=== PATIENT | male | born 1950 | race Caucasian/White ===

== ENCOUNTER → 2016-10-08 | Outpatient (CLI) | payer MEDICARE, MEDICAID ==
[~2016-10-08] MED LIST: ADVAIR 250/501 EA INH; ALBUTEROL0.09 MG/A2 IH; AMOXICILLIN500 MG PO; ASPIRIN81 M1 PO; ATENOLOL25 MG PO; ATROVENT I0.5 MG/2.1 INH; B12,B-12,B 12500 MC1 PO; CIPRO500 MG PO; COMBIVENT1 ARO IH; COREG3.125 MG PO; DOXYCYCLINE MO100 MG PO; DUONEB 3 MG/3 ML3 M1 INH; FLEXERIL10 MG PO; GOOD NEIGHBOR PH2 M1 PO; IBUPROFEN800 MG PO; LEVAQUIN750 M1 PO; LEVAQUIN750 MG PO; LEVOFLOXACIN500 MG PO; LIDODERM 5% PATC1 EA T; MIRALAX17 GM/DOSE PO; MUCINEX D 600 M1 TER PO; MUCINEX ER600 MG PO; NAPROXEN375 M1 PO; NEXIUM40 MG PO; NITROSTAT0.4 MG SL; NOVAPLUS V0.09 MG/Ac INH; OXYGEN NAS; PERCOCET 325 MG1 TA2 PO; PRAVACHOL20 MG PO; PREDNICOT10 MG PO; PREDNICOT20 MG PO; PREDNISONE10 MG PO; RESTORIL30 MG PO; SINGULAIR10 MG PO; SPIRIVA18 MCG IH; SYMBICORT1 AE1 INH; SYMBICORT1 AE1 PO; THEOPHYLLINE PO; TRAMADOL HCL50 MG PO; TRAZADONE HYDR100 MG PO; TRAZODONE100 MG PO; VALIUM5 MG PO; VIBRAMYCIN100 MG PO
== END | disposition home or self-care (01) ==
LOC: CT 09:36
DX: J44.9 Chronic obstructive pulmonary disease, unspecified (principal); R91.8 Other nonspecific abnormal finding of lung field; R06.02 Shortness of breath; Z85.828 Personal history of other malignant neoplasm of skin

== ENCOUNTER → 2016-12-17 | Outpatient (CLI) | payer MEDICARE, MEDICAID ==
--- NOTE | ~2016-12-17 | ST ---
[place], [place] EXERCISE STRESS TEST REPORT NAME: [facility]INE [facility]ATA SR [id number] UNIT #: [id number] ROOM: DOCTOR: LUI ENGEL MD BIRTHDATE: [birth year] DOS: 12/17/2016 LEXISCAN [employer]Y Regadenoson was infused intravenously over a period of 10 seconds, and 40 seconds later, technetium 99 sestamibi was injected intravenously. He became short of breath for a few minutes, but resolved. He had no chest pain. Maximum heart rate was 102 beats per minute and blood pressure was 118/70. Resting ECG demonstrated normal sinus rhythm at 81 beats per minute in a normal pattern. Following Lexiscan, no changes in the ECG were identified, and there were no dysrhythmias. CONCLUSION: 1. The patient had mild dyspnea following infusion of regadenoson. 2. No clinical or electrocardiographic evidence of ischemia. 3. Nuclear report will be provided separately. LUI ENGEL MD CM:STRESS:EXERCISE STRESS TEST REPORT [id number] LUI ENGEL MD
--- NOTE | ~2016-12-17 | PROC NOTE ---
[place], [place] PROCEDURE NOTE NAME: ERNESTINE PLATA SR UNIT #: [id number] ROOM: DOCTOR: LUI ENGEL MD BIRTHDATE: [birth year] DOS: 12/17/2016 LEXISCAN C[employer]IOLITE [employer]UDY Regadenoson was infused intravenously over a period of 10 seconds, and 40 seconds later, technetium 99 sestamibi was injected intravenously. He became short of breath for a few minutes, but resolved. He had no chest pain. Maximum heart rate was 102 beats per minute and blood pressure was 118/70. Resting ECG demonstrated normal sinus rhythm at 81 beats per minute in a normal pattern. Following Lexiscan, no changes in the ECG were identified, and there were no dysrhythmias. CONCLUSION: 1. The patient had mild dyspnea following infusion of regadenoson. 2. No clinical or electrocardiographic evidence of ischemia. 3. Nuclear report will be provided separately. LUI ENGEL MD CM:PROCNOTE:PROCEDURE NOTE [id number] LUI ENGEL MD
== END | disposition home or self-care (01) ==
LOC: CARD 12-10 01:23
DX: R07.89 Other chest pain (principal); R53.81 Other malaise

== ENCOUNTER 2017-01-21 15:25 | Inpatient (IN) | payer MEDICARE, MEDICAID ==
[~2017-01-21] VITALS: Ht 154.9 cm; Wt 98.2 kg
[2017-01-21 15:55] VITALS: BP 129/80
[2017-01-21 16:30] VITALS: BP 132/85
[2017-01-21 16:41] LABS: BASO % 0.4 % (0.0-1.0); EOS # 0.1 10*3/uL (0.0-0.4); EOS % 0.9 % (1.0-4.0); HEMATOCRIT 45.7 % (42.0-52.0); HEMOGLOBIN 14.4 g/dl (14.0-18.0); LYMPH # 1.2 10*3/uL (1.3-4.4); LYMPH % 11.9 % (27.0-41.0); MEAN CELL VOLUME 104.6 fl (80.0-94.0); MEAN CORPUSCULAR HGB CONC 31.5 g/dl (33.0-37.0); MEAN PLATELET VOLUME 9.8 fl (9.6-12.3); MONO % 9.9 % (3.0-9.0); NEUT # 7.6 10*3/uL (2.3-7.9); NEUT % 76.5 % (47.0-73.0); PLATELET COUNT AUTOMATED 170 10*3/uL (130-400); RED BLOOD COUNT 4.37 10*6/uL (4.50-5.90); RED CELL DISTRI WIDTH 13.5 % (0-14.5); WHITE BLOOD COUNT 9.9 10*3/uL (4.8-10.8)
[2017-01-21 16:49] LABS: PROTHROMBIN TIME 10.4 SECONDS (9.0-12.4)
[2017-01-21 17:00] VITALS: BP 109/69
[2017-01-21 17:00] LABS: ALBUMIN 3.3 gm/dl (3.1-4.5); ALKALINE PHOSPHATASE 107 U/L (45-117); BILIRUBIN, TOTAL 0.3 mg/dl (0.2-1.0); BUN 16 mg/dl (7-24); CARBON DIOXIDE 37 mmol/L (21-32); CHLORIDE 98 mmol/L (98-107); CKMB 1.8 ng/ml (0.5-3.6); CPK 69 U/L (39-308); EST GLOM FILT AFRICAN AMERICAN > 60 ml/min; GLUCOSE 116 mg/dL (65-99); MAGNESIUM 2.3 mg/dL (1.5-2.1); POTASSIUM 4.2 mmol/L (3.5-5.1); SGOT/AST 14 IU/L (3-35); SGPT/ALT 21 U/L (12-78); SODIUM 142 mmol/L (136-145); TOTAL PROTEIN 7.3 gm/dL (6.4-8.2)
[2017-01-21 17:02] LABS: TROPONIN I < 0.015 ng/ml (<0.045)
[2017-01-21 17:30] VITALS: BP 125/79
[2017-01-21] MEDS ORDERED: XALATAN 0.005%2.5 ML INTRAOC (17:40)
[2017-01-21 17:52] LABS: BILIRUBIN NEGATIVE (NEGATIVE); BLOOD TRACE-INTACT (NEGATIVE); CLARITY CLEAR (CLEAR); COLOR YELLOW (YELLOW); GLUCOSE NEGATIVE (NEGATIVE); KETONE NEGATIVE (NEGATIVE); LEUKO ESTERASE NEGATIVE (NEGATIVE); NITRITE NEGATIVE (NEGATIVE); PROTEIN 2+ (NEGATIVE); SPECIFIC GRAVITY 1.025 (1.005-1.030)
[2017-01-21 18:00] VITALS: BP 113/74
[2017-01-21 18:00] LABS: RBC 0-2 rbc/hpf (0-2); WBC 0-2 wbc/hpf (0-5)
[2017-01-21 18:01] LABS: URINE REFLEX COMMENT NO (NO)
[2017-01-21 18:05] VITALS: BP 138/94
[2017-01-22] VITALS: BP 125/62
[2017-01-22 04:00] LABS: HEMATOCRIT 45.7 % (42.0-52.0); HEMOGLOBIN 14.2 g/dl (14.0-18.0); MEAN CORPUSCULAR HGB 32.9 pg (27.0-31.0); MEAN CORPUSCULAR HGB CONC 31.1 g/dl (33.0-37.0); MEAN PLATELET VOLUME 9.4 fl (9.6-12.3); PLATELET COUNT AUTOMATED 171 10*3/uL (130-400); RED BLOOD COUNT 4.31 10*6/uL (4.50-5.90); RED CELL DISTRI WIDTH 13.3 % (0-14.5); WHITE BLOOD COUNT 8.8 10*3/uL (4.8-10.8)
[2017-01-22 04:18] LABS: BUN 14 mg/dl (7-24); CARBON DIOXIDE 38 mmol/L (21-32); CHLORIDE 100 mmol/L (98-107); EST GLOM FILT AFRICAN AMERICAN > 60 ml/min; GLUCOSE 181 mg/dL (65-99); SODIUM 142 mmol/L (136-145)
[2017-01-22 04:22] LABS: FREE T4 0.94 ng/dl (0.76-1.46)
[2017-01-22 04:24] LABS: LYMPHOCYTE # 0.2 10*3/uL (1.3-4.4); MONOCYTE # 0.1 10*3/uL (0.1-1.0); NEUTROPHIL # 8.5 10*3/uL (2.3-7.9); NEUTROPHILS 97 % (47-73); PLATELET SUFFICIENCY NORMAL (NORMAL); TOTAL CELLS COUNTED 100 #CELLS
[2017-01-22 04:29] LABS: POTASSIUM 5.3 mmol/L (3.5-5.1); THYROID STIM HORMONE (HS) 0.106 uIU/ml (0.358-4.75)
[2017-01-22 06:53] LABS: FOLIC ACID 9.03 ng/mL (>5.38); VITAMIN D, 25-HYDROXY 8.2 ng/mL (30-100)
[2017-01-22 08:00] VITALS: BP 122/78
[2017-01-22 12:00] VITALS: BP 106/70
[2017-01-22 16:00] VITALS: BP 124/73
[2017-01-22 20:00] VITALS: BP 134/63
[2017-01-22 23:56] VITALS: BP 132/66
[2017-01-23 06:45] LABS: BUN 17 mg/dl (7-24); CARBON DIOXIDE 40 mmol/L (21-32); CHLORIDE 101 mmol/L (98-107); EST GLOM FILT AFRICAN AMERICAN > 60 ml/min; GLUCOSE 152 mg/dL (65-99); POTASSIUM 5.1 mmol/L (3.5-5.1); SODIUM 144 mmol/L (136-145)
[2017-01-23 08:00] VITALS: BP 121/73
[2017-01-23] MEDS ORDERED: PREDNISONE10 MG PO (09:47)
[2017-01-23] MEDS ORDERED: D-1000 185 MG-11 TAB PO (09:47)
[2017-01-23] MEDS ORDERED: FLOMAX0.4 MG PO (09:47)
[2017-01-23] MEDS ORDERED: TRAZODONE100 MG PO (09:47)
[2017-01-23] MEDS ORDERED: LEVAQUIN500 M2 PO (09:47)
[2017-01-23 12:00] VITALS: BP 129/74
== END 2017-01-23 13:04 | disposition home or self-care (01) | DRG 871 ==
LOC: ED 15:25 → 4E 17:21 → EDHOLD 17:21 → 4E 17:48
PROVIDERS: Emergency Medicine; Internal Medicine Hospice and Palliative Medicine
DX: A41.9 Sepsis, unspecified organism (principal); J18.9 Pneumonia, unspecified organism; J96.21 Acute and chronic respiratory failure with hypoxia; J44.1 Chronic obstructive pulmonary disease with (acute) exacerbation; J44.0 Chronic obstructive pulmonary disease with (acute) lower respiratory infection; R65.20 Severe sepsis without septic shock; E83.41 Hypermagnesemia; R73.9 Hyperglycemia, unspecified; I25.10 Atherosclerotic heart disease of native coronary artery without angina pectoris; E78.5 Hyperlipidemia, unspecified; E66.01 Morbid (severe) obesity due to excess calories; F32.9 Major depressive disorder, single episode, unspecified; D75.89 Other specified diseases of blood and blood-forming organs; E55.9 Vitamin D deficiency, unspecified; E87.5 Hyperkalemia; N40.1 Benign prostatic hyperplasia with lower urinary tract symptoms; G47.33 Obstructive sleep apnea (adult) (pediatric); Z96.1 Presence of intraocular lens; Z99.81 Dependence on supplemental oxygen; Z85.46 Personal history of malignant neoplasm of prostate; Z85.828 Personal history of other malignant neoplasm of skin; Z98.49 Cataract extraction status, unspecified eye; Z98.61 Coronary angioplasty status; Z88.1 Allergy status to other antibiotic agents; Z80.1 Family history of malignant neoplasm of trachea, bronchus and lung; Z82.5 Family history of asthma and other chronic lower respiratory diseases; Z71.6 Tobacco abuse counseling; Z87.891 Personal history of nicotine dependence; Z79.82 Long term (current) use of aspirin; Z79.899 Other long term (current) drug therapy; Z68.37 Body mass index [BMI] 37.0-37.9, adult

== ENCOUNTER 2017-02-05 11:43 | Inpatient (IN) | payer MEDICARE, MEDICAID ==
[2017-02-05] VITALS (7 sets, daily range): BP systolic 97–147; BP diastolic 62–76
[~2017-02-05] VITALS: Ht 162.6 cm; Wt 99.1 kg
--- NOTE | ~2017-02-05 | PR ---
[place], [place] PROGRESS NOTE [id number] UN[facility] #: [id number] ROOM: 427 DOCTOR: LUI ENGEL MD BIRTHDATE: [birth year] DOS: 02/10/2017 SUBJECTIVE: He continued to be very short of breath and has oxygen on by mask. He still is coughing, very tired because of labored breathing. He has not had any chest pain other than when he coughs, no palpitations. Atrial fibrillation has been treated with diltiazem and atenolol and heart rate was around 120-130s today. He appears ____ frustrated and somewhat despondent and depressed. OBJECTIVE: GENERAL: He is alert, sitting in a chair with oxygen by mask, fairly tachypneic. VITAL SIGNS: Pulse is irregular at 120 beats per minute, blood pressure is 130/80. NECK: JVP is difficult to assess because of short neck and being obese. LUNGS: Breath sounds are severely diminished with adventitious sounds ____. EXTREMITIES: He had at least 2+ edema below the knees. IMPRESSION: 1. Chronic obstructive pulmonary disease exacerbation, somewhat better. 2. Atrial fibrillation with rapid ventricular rate, diltiazem is being added to atenolol to slow down the heart rate. 3. Chest x-ray 48 hours ago had demonstrated mild cardiomegaly and chronic obstructive pulmonary disease changes and no pulmonary edema. I think this patient has right heart failure. I recommend using IV furosemide for a few days and then switch him over to oral preparation. When he is discharged, I would like to see him in my office soon. LUI ENGEL MD CM:PNTRANS [id number] LUI ENGEL MD 02/11/17 0423 interface
--- NOTE | ~2017-02-05 | PR ---
[place], [place] PROGRESS NOTE NAME: ERNESTINE PLATA SR UNIT #: [id number] ROOM: 427 DOCTOR: RICKI SHOEMAKER MD BIRTHDATE: [birth year] DOS: 02/10/2017 SUBJECTIVE: He has been noted with some drowsiness. He had arterial blood gases done this morning shows severe hypercapnia with a decreased pH. The patient's use of the BiPAP was noted limited as the patient was not wishing to put it on as recommended. OBJECTIVE: VITAL SIGNS: Showed normal temperature, respiratory rate 20, heart rate 54, blood pressure 98/61. Pulse oxygen saturation on 40% oxygen 95% saturation recorded. HEENT: Showed no new change. NECK: Supple. CARDIOVASCULAR: S1, S2 is audible. LUNGS: Noted without any wheezing or crackles. Breaths are noted generally diminished bilaterally. ABDOMEN: Soft and obese. LABORATORY DATA: Arterial blood gas to 50% Venturi mask, pH of 7.17, pCO2 of 90.8, pO2 of 65. BMP this morning, BUN 33, creatinine was normal. Potassium 5.4, carbon dioxide 35. CBC of the patient this morning, WBC count 11.9, hematocrit 20.8, hematocrit 41.6, platelet count was 126,000. CT scan of the abdomen and pelvis without contrast does not show any acute abnormalities as per radiologist's report. IMPRESSION: 1. The patient who has been currently noted acute on chronic severe hypercapnic and hypoxic respiratory failure, exacerbation of chronic obstructive pulmonary disease. 2. Chronic morbid obesity. 3. Obstructive sleep apnea disorder. 4. Metabolic alkalosis. 5. Mild hyperkalemia. PLAN OF TREATMENT: The patient was advised to encourage about regular use of the BiPAP. I recommend it for the short-term management of acute exacerbation of chronic obstructive pulmonary disease, [id number] hypercapnic respiratory failure. The patient stated that he will be using the BiPAP as recommended. Supportive plan of management care and treatment. Arterial blood gases p.r.n. will be done. [place], [place] PROGRESS NOTE NAME: ERNESTINE PLATA SR UNIT #: [id number] ROOM: 427 DOCTOR: RICKI SHOEMAKER MD BIRTHDATE: [birth year] RICKI CARRERO MD CM:PNTRANS [id number] [id number] RICKI RAMON MD 02/11/17 0556 interface
--- NOTE | ~2017-02-05 | EKG ---
[place], [place] ELECTROCARDIOGRAM REPORT NAME: ERNESTINE PLATA SR UNIT #: [id number] ROOM: 427 DOCTOR: LUI ENGEL MD BIRTHDATE: [birth year] DOS: 02/05/2017 TIME: 12:21 hours. Atrial fibrillation with a ventricular rate of 147 beats per minute. No evidence of ischemia or infarct. Low voltage in limb leads. An abnormal ECG. No previous tracing is available for comparison. LUI ENGEL MD CM:EKGRPT:ELECTROCARDIOGRAM REPORT 41 [phone] LUI ENGEL MD
--- NOTE | ~2017-02-05 | PR ---
[place], [place] PROGRESS NOTE NAME: ERNESTINE PLATA SR UNIT #: [id number] ROOM: 427 DOCTOR: RICKI SHOEMAKER MD BIRTHDATE: [birth year] DOS: 02/13/2017 SUBJECTIVE: The patient was noted comfortable at this time. The patient is resting on the chair. He has used the BiPAP last night for several hours, all throughout the night. He was noted much more awake and alert. Shortness of breath in the patient has been improving. Denies any symptoms of chest pain or any abdominal pain. OBJECTIVE: VITAL SIGNS: For the patient which were recorded show the temperature of the patient noted as normal. The respiratory rate of the patient recorded as 14-17, heart rate of 89-112, blood pressure 103/53 to 91/50. HEENT: Examination shows no new change. NECK: Supple. CARDIOVASCULAR: S1, S2 is audible. LUNGS: The patient was noted without any wheeze or crackles at the present time. Breaths are noted generally diminished bilaterally with improvement in air entry was noted. ABDOMEN: Noted with chronic obesity. Bowel sounds are present. CENTRAL NERVOUS SYSTEM: For this patient was noted with no focal deficit. EXTREMITIES: Show mild edema for this patient as well. LABORATORY DATA: The BMP of this morning shows a glucose 161, BUN 30, creatinine 0.81, CO2 of 36. CBC this morning, normal WBC count 9.9, hemoglobin 12.7, hematocrit 38.0, platelet count 105,000. IMPRESSION: 1. The patient with [id number]-tf-[id number] hypercapnic and hypoxic respiratory failure. 2. Resolving metabolic alkalosis. 3. Improving thrombocytopenia gradually as well. 4. Overall debility. 5. History of obstructive sleep apnea disorder. 6. Past history of tobacco use. PLAN OF TREATMENT: Continue the BiPAP for the patient administration as previously ordered. Further treatment changes will be done to the patient based on the progression of the illness. The patient is waiting for assessment and authorization for the LTAC facility. Other usual medical management, plan of care, supportive care, and other therapies. [place], [place] PROGRESS NOTE NAME: ERNESTINE PLATA SR UNIT #: [id number] ROOM: 427 DOCTOR: RICKI SHOEMAKER MD BIRTHDATE: [birth year] RICKI CARRERO MD CM:NERY 1203 2 RICKI RAMON MD 02/14/17 0424 interface
--- NOTE | ~2017-02-05 | CON ---
[place], [place] REPORT OF CONSULTATION NAME: ERNESTINE PLATA SR UNIT #: [id number] ROOM: 427 DOCTOR: MAGAN RAMON MDRICKI BIRTHDATE: [birth year] DOS: 02/08/2017 PULMONARY CONSULTATION AND EVALUATION MANAGEMENT REASON FOR CONSULTATION: Assess the patient for acute respiratory failure, hypercapnia changes in mental status. HISTORY OF PRESENT ILLNESS: This is a 66-year-old white male who has been admitted under hospitalist service from 02/05/2017. The patient has been hospitalized at this time and treated for these symptoms of pain, which is described in the left groin area. He was also noted with symptoms of shortness of breath, which has been noted progressive for this patient and occurred at home recently. The shortness of breath of the patient has been noted with gradual worsening. He has been noted with atrial fibrillation with rapid ventricular response for this patient that has been treated and he was discharged recently as well for that management. The patient has been noted with progressive change in mental status during current hospitalization. Arterial blood gases done, which shows evidence of acute hypercapnic and hypoxic respiratory failure. It was noted that the patient is not able to give me any history accurately. He has been reported some cough previously without any sputum expectoration. REVIEW OF SYSTEMS: The patient cannot be completed. The patient current change in mental status. The patient noted very sleepy, lethargic, arousable to vocal commands, but does not have any good verbal communication at this time. PAST MEDICAL HISTORY: 1. The patient has known history of chronic hypercapnia hypoxic respiratory failure. 2. History of obstructive sleep apnea disorder treated with CPAP. 3. Coronary artery disease. 4. History of depression. 5. Hyperlipidemia. 6. Chronic obesity. 7. Skin cancer. 8. Centrilobular emphysema for the patient as well. 9. Vitamin B12 deficiency. 10. Obesity. 11. Atrial fibrillation with rapid ventricular response noted in this current admission of January 2017. 12. History of prostate cancer. PAST SURGICAL HISTORY: 1. Inguinal hernia repair. 2. Cataract extraction with lens implantation bilaterally. 3. Cardiac catheterization and coronary artery stent insertion. 4. Left knee arthroscopy. 5. Biopsy of the prostate gland. 6. Past colonoscopy. [place], [place] REPORT OF CONSULTATION NAME: BONI ERNESTINE CONLEY UNIT #: [id number] ROOM: 427 DOCTOR: MAGAN RAMON MD,RICKI BIRTHDATE: [birth year] SOCIAL HISTORY: The patient is , has 4 children. He has been noted history of tobacco use since teenager, pack of cigarettes per day for this patient and not smoking cigarettes actively at this time since 12/2016. Denies history of alcohol use or any illicit drug use noted at this time, used to drink alcohol previously that has been discontinued in 2017. FAMILY HISTORY: Mother at the age of 6666 years old from complication of COPD. Father at age 6060 years old, complication related to the lung cancer. MEDICATIONS: Current administered medications noted use of ____, Eliquis, Singulair, simvastatin, vitamin B12, vitamin D, Flomax, aspirin, IV Solu-Medrol 80 mg q. 8 hours, Mucinex, Dulera, DuoNeb, Zithromax and Rocephin. He was also getting other p.r.n. medications for different symptoms. DRUG ALLERGIES: History of allergy was CHANTIX. PHYSICAL EXAMINATION: GENERAL: This is a 66-year-old male who has been currently noted lethargic, height of 5 feet 4 inches recorded by the nursing staff with weight of 210 pounds, BMI 36.1. VITAL SIGNS: For the patient which were recorded shows the temperature noted as normal, respiratory rate 20-22, heart rates noted as 106-52. The highest heart rate noted on admission with heart rate of 132 beats per minute with atrial fibrillation. The respiratory rate of the patient recorded as 20. Blood pressure was noted as 117/76-118/77. Pulse oxygen saturation noted on 2 liters nasal cannula ____ saturation. HEENT: Chronic obesity. Head was atraumatic. Eyes nonicterus. Severe reduced posterior pharyngeal space. NECK: Supple. CARDIOVASCULAR: S1, S2 is audible. LUNGS: The patient noted generally decreased air entry with poor air exchange. ABDOMEN: Soft, obese, nontender. EXTREMITIES: Showed chronic obesity. CENTRAL NERVOUS SYSTEM: Could not be performed because of current lethargy. SKIN: Visible ____ lesions or rashes. MUSCULOSKELETAL: There were no deformities. LABORATORY DATA: BMP this morning, BUN 31, creatinine was normal, glucose 163, potassium 6.1, sodium 129, chloride of 88, carbon dioxide 40. Calcium was 8.3. CBC of patient this morning: WBC count 14.4, hemoglobin 13.1, hematocrit of 41.3, platelet count 157,000. Blood culture which were done on 02/05/2017 shows no bacterial growth. CBC of 02/05/2017, WBC count 12.2 with normal hemoglobin, hematocrit and platelet count were noted on admission of 02/05/2017. PT/PTT of patient 02/05/2017 was normal. CMP of the patient on 02/05/2017 was noted with normal BUN and creatinine. CO2 was 39, which was mild to moderately elevated. Chest x-ray, 1 view on 02/05/2017 shows COPD changes hyperinflation without any acute pulmonary infiltration. CK-MB, troponin ____ and 17, total 3 sets were noted all normal. IMPRESSION: [place], [place] REPORT OF CONSULTATION NAME: ERNESTINE PLATA SR UNIT #: [id number] ROOM: 427 DOCTOR: RICKI SHOEMAKER MD BIRTHDATE: [birth year] 1. The patient who has been currently admitted to the hospital, was noted with progressive changes in mental status. The patient related to acute hypercarbia, acute hypercapnic and hypoxic respiratory failure. 2. Acute exacerbation of chronic obstructive pulmonary disease. The patient is suspected acute bacterial bronchitis as well. 3. New onset of atrial fibrillation, currently noted rapid ventricular response after initial improvement couple of days ago. 4. Chronic obesity. 5. Obstructive sleep apnea disorder. 6. History of prostate cancer. PLAN OF TREATMENT: The patient has been ordered the BiPAP. The patient is in a setting of 16/10 that will be continued for one hour, tolerated to proceed with the settings of 18/10. After that for addition 2 hours and then the repeat arterial blood gasses. Reassessment prior to making any further changes in mechanical ventilatory status. Monitoring the mental status closely as well. If the patient developed progressive respiratory failure, nonresponsive with the use of the noninvasive ventilator. The patient would be considered for intubation, mechanical ventilation and will be transferred to the Intensive Care Unit. Otherwise, continue manage the patient currently telemetry floor at this time. Continue current ____ dose of steroids, antibiotics and frequent bronchodilators administration. Usual care, other supportive therapy, plan and management. The patient with further changes to be done based on progression of the illness. Usual care. Other treatment plan and management. Thanks for allowing me to participate in the care of this patient. RICKI CARRERO MD CM:CONSTR:REPORT OF CONSULTATION 1432 02/09/17 0501 interface
--- NOTE | ~2017-02-05 | PR ---
[place], [place] PROGRESS NOTE NAME: ERNESTINE PLATA SR UNIT #: [id number] ROOM: 427 DOCTOR: MAGAN RAMON MD,RICKI BIRTHDATE: [birth year] DOS: 02/09/2017 PULMONARY PROGRESS NOTE SUBJECTIVE: He had been noted fully awake and alert this morning, responding to the use of the BiPAP. Using the BiPAP as advised. He has not been noted with symptoms of chest pain or any hemodynamic instability. OBJECTIVE: VITAL SIGNS: Normal temperature, respiratory rate 16, heart rate of 131-95, blood pressure 197/60-112/86. Pulse oxygen saturation on 4 L nasal cannula 95% saturation, on the BiPAP 35% oxygen 95% saturation. HEENT: Examination showed no new change. NECK: Supple. CARDIOVASCULAR SYSTEM: S1, S2 is audible. LUNGS: The patient was noted with general reduction of breath sounds in the lungs were noted bilaterally. ABDOMEN: Soft, nontender. LABORATORY DATA: CBC today: WBC count 10.5, hemoglobin 13.1, hematocrit normal, platelet count was normal. BMP this morning, BUN 28, creatinine was normal, carbon dioxide 41. Chloride of 94. Arterial blood gas on 4 L nasal cannula, pH of 7.24, pCO2 84, pO2 of 70.4. The culture of the sputum for the patient noted heavy growth of yeast without any other bacterial isolation. IMPRESSION: 1. The patient who has been currently noted with acute on chronic severe hypercapnic and hypoxic respiratory failure, responding to treatment gradually. The respiratory symptoms for the patient have been improving with reduction of the overall respiratory symptom. 2. Severe metabolic alkalosis secondary to underlying chronic hypercarbia as well. 3. History of obstructive sleep apnea disorder as well. PLAN OF TREATMENT: The patient will be started on the Diamox orally for this patient for the medical management of metabolic alkalosis. Dose of Solu-Medrol will be decreased for the patient to 40 mg every 8 hours. Continue current antibiotic. No changes in treatment at this time will be necessary. Monitor respiratory status otherwise closely. The patient was advised to continue to use BiPAP for the patient as much as time possible for this patient as well. Further treatment, plan and management for the patient continued to be changed based on the progression of the illness. [place], [place] PROGRESS NOTE NAME: ERNESTINE PLATA SR UNIT #: [id number] ROOM: 427 DOCTOR: RICKI SHOEMAKER MD BIRTHDATE: [birth year] RICKI CARRERO MD CM:PNNIKHIL 1513 17 RICKI RAMON MD 02/09/172117 interface
--- NOTE | ~2017-02-05 | PR ---
[place], [place] PROGRESS NOTE [id number] #: [id number] ROOM: 427 DOCTOR: ALINE DIAZ MD BIRTHDATE: [birth year] DOS: 02/12/2017 I am covering for Dr. Smith. SUBJECTIVE: The patient was seen by Dr. Smith. The patient is comfortably sleeping at this point. OBJECTIVE: VITAL SIGNS: Blood pressure today is 119/72, heart rate is 110 in atrial fibrillation. NECK: Supple, elevated JVD. LUNGS: Diminished breath sounds. HEART: Sounds are irregularly irregular. ABDOMEN: Soft, obese. NEUROLOGIC: Stable. EXTREMITIES: About 2+ edema. LABORATORY DATA: Hemoglobin 11.9, hematocrit 37. Electrolytes: Potassium 4.7, creatinine is normal. His I's and O's shows negative 2 liters, which is excellent. Leg edema is improving. The patient was supposed to have an echocardiogram to be done by Dr. Smith. I do not see the report. I should strongly recommend to get an echocardiogram if it is not done in 6 months to assess the right-sided pressures and also the ejection fraction. IMPRESSION: Severe chronic obstructive pulmonary disease, predominantly right-sided heart failure, some degree of left-sided decompensation because of atrial fibrillation. RECOMMENDATIONS: Continue the present medications. Continue the loop diuretics, strict I's and O's, continue the beta blockers, lipid lowering agents and antibiotics as ordered. Get an echocardiogram if it is not done in 6 months and I will follow up. I saw this patient on behalf of Dr. Smith. ALINE DIAZ MD CM:PNTRANS 0735 21 ALINE DIAZ MD 02/12/17 2224 interface
--- NOTE | ~2017-02-05 | CON ---
[place], [place] REPORT OF CONSULTATION NAME[id number] UN[facility] #: [id number] ROOM: 427 DOCTOR: LUI ENGEL MD BIRTHDATE: [birth year] DOS: 02/05/2017 HISTORY OF PRESENT ILLNESS: The patient is a 66-year-old -[place] man whom I started seeing in the office just in the last several months. He has coronary artery disease and how this started is not clear to me at this time. He has significant COPD that is quite symptomatic. He uses oxygen. He has morbid obesity, has hyperlipidemia, has had hyperkalemia in the past, and obstructive sleep apnea and uses CPAP. He uses oxygen at all times. He has been feeling unwell for quite sometime, but very recently noticed increasing shortness of breath with some cough. He is expectorating very little sputum, no hemoptysis. There has not been any chest pain or palpitations. He had no swelling of the lower extremities. In the Emergency Department, he was found to have an irregular heart rate. An ECG was performed which demonstrated atrial fibrillation and he was placed on IV heparin and diltiazem drip. HOME MEDICATIONS: Aspirin, Symbicort, cholecalciferol, ibuprofen, Xalatan eye drops, Singulair, nicotine, pravastatin, Flomax, trazodone and also prednisone 10 mg daily. PHYSICAL EXAMINATION: GENERAL: Revealed the patient who is rather frustrated and he is very short of breath and that I think is angering him. He is not diaphoretic. VITAL SIGNS: Temperature is normal. Pulse is about 112, irregular. Blood pressure 104/76. NECK: JVP is difficult to assess. Carotid bruits could not be heard. HEART: Sounds were distant with no murmur or rub. EXTREMITIES: He has a 1+ pretibial edema. RESPIRATORY: He is using accessory muscles of respiration with his arms resting on side table. He is tachypneic. Percussion note reveals hyperresonance. Auscultation reveals severely diminished breath sounds with hardly any air exchange and therefore all adventitious sounds are not audible. DIAGNOSTIC STUDIES: An ECG demonstrated atrial fibrillation with a ventricular rate of 147 beats per minute and low voltage in limb leads, but no ischemia or infarction. LABORATORY DATA: BUN 13, creatinine 0.90, normal electrolytes. Potassium 4.1 and magnesium 2.0. Chest x-ray did not demonstrate any acute abnormality. IMPRESSION: 1. This patient has newly diagnosed atrial fibrillation with rapid ventricular rate. Underlying etiology is likely be multifactorial including coronary artery disease and of course severe chronic obstructive pulmonary disease causing hypoxia and stress. 2. Severe chronic obstructive pulmonary disease with exacerbation. 3. Coronary artery disease, no acute issue appeared to be present at this time. [place], [place] REPORT OF CONSULTATION NAME: ERNESTINE PLATA SR UNIT #: [id number] ROOM: 427 DOCTOR: MAREN CABRAL,LUI BIRTHDATE: [birth year] RECOMMENDATIONS: The patient should have an echocardiogram to assess LV systolic function and look at the left atrial size. He should be anticoagulated chronically and I think NOAC such as Xarelto, Pradaxa or Eliquis or Savaysa would be appropriate for this man if covered by insurance. IV Cardizem should be continued. Since duration of atrial fibrillation is not known, electrical cardioversion or a cardioversion with antiarrhythmic drugs is not appropriate. I think 3-4 weeks of adequate anticoagulation should be followed by electrical cardioversion, should he remain in this abnormal rhythm. I thank you for this consult. LUI ENGEL MD CM:CONSTR:REPORT OF CONSULTATION 15 02/06/17 2011 interface
--- NOTE | ~2017-02-05 | PR ---
[place], [place] PROGRESS NOTE NAME: ERNESTINE PLATA SR UNIT #: [id number] ROOM: 427 DOCTOR: RICKI SHOEMAKER MD BIRTHDATE: [birth year] DOS: 02/12/2017 SUBJECTIVE: He has been showing gradual improvement in the respiratory status. Noted that he was on the BiPAP. The patient stated he has not used the BiPAP yesterday as the patient was not fitted right for the mask. This morning, using oxygen supplementation and stated that he like to go home. OBJECTIVE: VITAL SIGNS: For the patient which was recorded shows normal temperature, respiratory rate 18, heart rate of 104-85, blood pressure 92/58 to 119/72. The pulse oxygen saturation for the patient noted on 40% BiPAP was 98% on 5 liters was 95% saturation. HEENT: No acute change. NECK: Supple. CARDIOVASCULAR: S1, S2 audible. LUNGS: Moderate reduction in the breath sounds without wheezing or crackles. ABDOMEN: Soft, nontender. LABORATORY DATA: CBC: WBC count was 8.9, hemoglobin 12.3, hematocrit 38.4, platelet count 94,000. BMP this morning, BUN 36, creatinine was normal, glucose 169, carbon dioxide 41. Venous duplex of the lower extremities that was done yesterday was noted negative for any deep venous thrombosis. IMPRESSION: 1. Stable respiratory status, acute chronic hypercapnic and severely hypoxic respiratory failure. 2. Metabolic acidosis secondary to chronic hypercarbia and intravascular volume depletion would be likely. PLAN OF TREATMENT: Continue the BiPAP. Continue the use of the oxygen supplementation as well. Continuation of the corticosteroids and bronchodilators. I have a detailed explanation to the patient about the necessity of the patient being treated as an inpatient including consideration for the long-term acute care facility. The patient agreed to be admitted to long-term acute care facility from this hospital once he is accepted to any facility. [place], [place] PROGRESS NOTE NAME: ERNESTINE PLATA SR UNIT #: [id number] ROOM: 427 DOCTOR: RICKI SHOEMAKER MD BIRTHDATE: [birth year] RICKI CARRERO MD CM:PNTRANS [id number] RICKI RAMON MD 02/14/17 0217 interface
--- NOTE | ~2017-02-05 | CON ---
[place], [place] REPORT OF CONSULTATION NAME: ERNESTINE PLATA SR [id number] UNIT #: [id number] ROOM: 427 DOCTOR: ELISEO DRUMMOND ED.D (PEG) BIRTHDATE: [birth year] DOS: 02/06/2017 HISTORY OF PRESENT ILLNESS: The patient is 66-year-old male referred by the hospitalist for evaluation of his depression. At the present time, this patient is on the 4th floor at [facility]. This patient states he is and he has several children. He has one son who is disabled and presently resides with the patient and requires significant care from visiting nurses. The patient is on disability, last working at [employer] in [place], [place]. His family physician is Dr. Lugo and his medical history is pertinent for BPH, coronary artery disease, chronic respiratory failure, depression, macrocytosis, morbid obesity and oxygen dependency. His present medications include aspirin, Symbicort, vitamin D3, ibuprofen, Xalatan, Singulair, pravastatin, prednisone, Flomax and trazodone. He states he quit drinking and states he smokes one-half pack of cigarettes per day. This patient was awake, alert and oriented in all 3 spheres, but appeared to be depressed. He denies any auditory or visual hallucinations or delusions and denies any suicidal ideation or plan. He has never been evaluated or treated by a mental health professional in the past. This patient explained that he had significant issues with his son who is disabled. He states he does get overwhelmed by providing care for his son. He and his struggle very great deal with taking care of the son although the son does have home health aides and visiting nurses. The patient states that he has issues with his bladder because he had incontinence. He believes he has some type of "clot" which caused his incontinence and shortness of breath. I did discuss this with Dr. Carr who is his attending hospitalist. The patient states he does not want any type of antidepressant but may be willing to take something in the future, but right now just wants to deal with the medical issues that he has. DIAGNOSIS: Major depressive disorder, recurrent. RECOMMENDATIONS: The patient should consider antidepressant medications; however, he does refuse at this time. He also refuses any type of counseling. Thank you very much for this consult. ELISEO DRUMMOND ED.D CM:CONSTR:REPORT OF CONSULTATION 0932 02/06/17 2338 interface
--- NOTE | ~2017-02-05 | PR ---
[place], [place] PROGRESS NOTE NAME: ERNESTINE PLATA SR UNIT #: [id number] ROOM: 427 DOCTOR: RICKI SHOEMAKER MD BIRTHDATE: [birth year] DOS: 02/11/2017 PULMONARY PROGRESS NOTE SUBJECTIVE: The patient has been noted comfortable at this time without any distress. She has been using the BiPAP as advised most of the time except meals. Oxygen saturation of the patient was noted stable with current use of the BiPAP this morning. The patient was sitting on the chair for this patient, using the BiPAP, noted awake and alert on that. OBJECTIVE: VITAL SIGNS: For the patient which were recorded showed the temperature of the patient noted as normal. The respiratory rate of the patient recorded as 18. The heart rate of the patient was noted as 103-81, blood pressure 92/46-116/61. HEENT: Examination shows head was atraumatic. Eyes nonicterus. NECK: Supple. CARDIOVASCULAR SYSTEM: S1, S2 audible. LUNGS: Shows no wheezing or crackles at the present time. ABDOMEN: Soft, nontender. LABORATORY DATA: BMP today: BUN 41, creatinine was normal, carbon dioxide 41, chloride of 93. CBC of the patient of 02/11/2017, WBC count 11.3, hemoglobin 11.9, hematocrit 37.0, platelet count 110,000. IMPRESSION: 1. The patient with gradual resolution and improvement noted in the respiratory status of the patient with acute on chronic hypercapnic hypoxic respiratory failure, exacerbation of chronic obstructive pulmonary disease. 2. Obstructive sleep apnea disorder. 3. Metabolic alkalosis, resolving. PLAN OF TREATMENT: Continue the current therapy as previously. Continue with the current medical management, plan of care. [place], [place] PROGRESS NOTE NAME: ERNESTINE PLATA SR UNIT #: [id number] ROOM: 427 DOCTOR: RICKI SHOEMAKER MD BIRTHDATE: [birth year] RICKI CARRERO MD CM:PNTRANS [id number] RICKI RAMON MD 02/12/17 0214 interface
--- NOTE | ~2017-02-05 | PR ---
[place], [place] PROGRESS NOTE [id number] #: [id number] ROOM: 427 DOCTOR: LUI ENGEL MD BIRTHDATE: [birth year] DOS: 02/11/2017 SUBJECTIVE: He is sitting in chair and has oxygen on. He is much more comfortable and is not distress, his mood seems subdued unlike the other day he was admitted, he still has cough and is really short of breath. PHYSICAL EXAMINATION: VITAL SIGNS: Pulse is irregular at 100-210 beats per minute, blood pressure 112/59. NECK: JVP difficult to access because of large and short neck. He has severe edema of the lower extremities. LUNGS: Breath sounds are severely depressed with some adventitious sounds. LABORATORY DATA: He had -3.6 liters fluid balance in the last 24 hours. IMPRESSION: 1. Severe chronic obstructive pulmonary disease. 2. Predominantly right-sided heart failure. He probably has some degree of left sided decompensation because of atrial fibrillation with rapid rate and he admits to better breathing today compared with previously. RECOMMENDATIONS: I would advise continue with higher doses of loop diuretic until edema in the lower extremities subsided substantially ____ renal function seem to deteriorate. LUI ENGEL MD CM:PNTRANS [id number] LUI ENGEL MD 02/12/17 0555 interface
--- NOTE | ~2017-02-05 | PR ---
[place], [place] PROGRESS NOTE NAME: [facility]INE PLATA [id number] UNIT #: [id number] ROOM: 427 DOCTOR: ALINE DIAZ MD BIRTHDATE: [birth year] DOS: 02/07/2017 SUBJECTIVE: In 24-hour events noted. Discussed with the nursing staff. I am covering for Dr. Smith. Heart rate is much better. The patient's Cardizem drip has been discontinued. He is on p.o. Cardizem and p.o. Lopressor. OBJECTIVE: VITAL SIGNS: He is still in atrial fibrillation, heart rate of 116/54. The patient got the authorization for Xarelto. HEENT: Normal. NECK: Supple, elevated JVD. LUNGS: Diminished breath sounds. HEART: Sounds are irregularly irregular. ABDOMEN: Soft. NEUROLOGIC: Appears to be very anxious. LABORATORY DATA: White count is 20,000, hemoglobin 13.9, and hematocrit 44.2. Potassium of 5.1, creatinine is 0.9. IMPRESSION AND PLAN: The patient with atrial fibrillation. Please refer to the detailed consultations as per Dr. Smith. Continue the rate control and anticoagulation. The patient's white count is elevated. It should be evaluated and we will follow up. ALINE DIAZ MD CM:PNTRANS [id number] ALINE DIAZ MD 02/08/17 0340 interface
[~2017-02-05 11:43] MED LIST changes: +D-1000 185 MG-11 TAB PO; +FLOMAX0.4 MG PO; +LEVAQUIN500 M2 PO; +XALATAN 0.005%2.5 ML INTRAOC
[2017-02-05 12:36] LABS: BASO % 0.2 % (0.0-1.0); EOS # 0.1 10*3/uL (0.0-0.4); EOS % 0.5 % (1.0-4.0); HEMOGLOBIN 14.8 g/dl (14.0-18.0); IG # 0.1 10*3/uL (0.0-0.1); LYMPH # 2.2 10*3/uL (1.3-4.4); LYMPH % 18.2 % (27.0-41.0); MEAN CELL VOLUME 103.8 fl (80.0-94.0); MEAN CORPUSCULAR HGB 32.7 pg (27.0-31.0); MEAN CORPUSCULAR HGB CONC 31.5 g/dl (33.0-37.0); MEAN PLATELET VOLUME 9.4 fl (9.6-12.3); MONO # 0.8 10*3/uL (0.1-1.0); MONO % 6.8 % (3.0-9.0); NEUT % 73.9 % (47.0-73.0); PLATELET COUNT AUTOMATED 197 10*3/uL (130-400); RED BLOOD COUNT 4.53 10*6/uL (4.50-5.90); RED CELL DISTRI WIDTH 13.6 % (0-14.5); WHITE BLOOD COUNT 12.2 10*3/uL (4.8-10.8)
[2017-02-05 12:45] LABS: PROTHROMBIN TIME 10.4 SECONDS (9.0-12.4)
[2017-02-05 12:55] LABS: ALBUMIN 3.3 gm/dl (3.1-4.5); ALKALINE PHOSPHATASE 81 U/L (45-117); BILIRUBIN, TOTAL 0.6 mg/dl (0.2-1.0); BUN 13 mg/dl (7-24); CARBON DIOXIDE 39 mmol/L (21-32); CHLORIDE 99 mmol/L (98-107); CKMB 3.8 ng/ml (0.5-3.6); CPK 63 U/L (39-308); EST GLOM FILT AFRICAN AMERICAN > 60 ml/min; GLUCOSE 114 mg/dL (65-99); POTASSIUM 4.1 mmol/L (3.5-5.1); SGOT/AST 11 IU/L (3-35); SGPT/ALT 32 U/L (12-78); SODIUM 141 mmol/L (136-145); TROPONIN I 0.015 ng/ml (<0.045)
[2017-02-05 12:56] LABS: C-REACTIVE PROTEIN < 0.29 MG/DL (0-0.3)
[2017-02-05] MEDS ORDERED: B12,B-12,B 12500 MC1 PO (15:23)
[2017-02-05] MEDS ORDERED: PREDNISONE10 MG PO (15:24)
[2017-02-05] MEDS ORDERED: NICOTINE PATCH1 EAC1 TD (15:25)
[2017-02-05 18:24] LABS: CKMB 3.3 ng/ml (0.5-3.6); CPK 59 U/L (39-308)
[2017-02-05 18:27] LABS: TROPONIN I < 0.015 ng/ml (<0.045)
[2017-02-06] VITALS (10 sets, daily range): BP systolic 94–124; BP diastolic 61–80
[2017-02-06 00:45] LABS: CKMB 3.6 ng/ml (0.5-3.6); CPK 53 U/L (39-308)
[2017-02-06 00:47] LABS: TROPONIN I < 0.015 ng/ml (<0.045)
[2017-02-06 01:13] LABS: BILIRUBIN NEGATIVE (NEGATIVE); BLOOD NEGATIVE (NEGATIVE); CLARITY CLEAR (CLEAR); COLOR YELLOW (YELLOW); GLUCOSE 1+ (NEGATIVE); KETONE NEGATIVE (NEGATIVE); LEUKO ESTERASE NEGATIVE (NEGATIVE); NITRITE NEGATIVE (NEGATIVE); PH 5.5 (5.0-9.0); PROTEIN NEGATIVE (NEGATIVE); SPECIFIC GRAVITY 1.015 (1.005-1.030); UROBILINOGEN 0.2 E.U./dl (0.2-1.0)
[2017-02-06 01:21] LABS: BACTERIA TRACE; EPITHELIAL CELLS 0-2; WBC 0-2 wbc/hpf (0-5)
[2017-02-06 01:22] LABS: URINE REFLEX COMMENT NO (NO)
[2017-02-06 06:59] LABS: HEMATOCRIT 44.6 % (42.0-52.0); HEMOGLOBIN 13.8 g/dl (14.0-18.0); MEAN CELL VOLUME 103.5 fl (80.0-94.0); MEAN CORPUSCULAR HGB CONC 30.9 g/dl (33.0-37.0); MEAN PLATELET VOLUME 9.9 fl (9.6-12.3); PLATELET COUNT AUTOMATED 188 10*3/uL (130-400); RED BLOOD COUNT 4.31 10*6/uL (4.50-5.90); RED CELL DISTRI WIDTH 13.2 % (0-14.5); WHITE BLOOD COUNT 11.2 10*3/uL (4.8-10.8)
[2017-02-06 07:24] LABS: LYMPHOCYTE # 0.4 10*3/uL (1.3-4.4); NEUTROPHIL # 10.8 10*3/uL (2.3-7.9); NEUTROPHILS 96 % (47-73); PLATELET SUFFICIENCY NORMAL (NORMAL); TOTAL CELLS COUNTED 100 #CELLS
[2017-02-06 07:28] LABS: CKMB 3.6 ng/ml (0.5-3.6); CPK 40 U/L (39-308)
[2017-02-06 07:29] LABS: TROPONIN I < 0.015 ng/ml (<0.045)
[2017-02-06 07:30] LABS: PROTHROMBIN TIME 10.7 SECONDS (9.0-12.4)
[2017-02-06 07:33] LABS: ALBUMIN 3.2 gm/dl (3.1-4.5); CHLORIDE 99 mmol/L (98-107); SODIUM 139 mmol/L (136-145)
[2017-02-06 07:57] LABS: ALKALINE PHOSPHATASE 84 U/L (45-117); BILIRUBIN, TOTAL 0.3 mg/dl (0.2-1.0); BUN 18 mg/dl (7-24); CARBON DIOXIDE 39 mmol/L (21-32); CHOLESTEROL 132 mg/dL (<200); EST GLOM FILT AFRICAN AMERICAN > 60 ml/min; GLUCOSE 178 mg/dL (65-99); HDL CHOLESTEROL 65 mg/dl (40-60); LDL CHOLESTEROL 49 mg/dL (9-159); MAGNESIUM 2.3 mg/dL (1.5-2.1); SGOT/AST 13 IU/L (3-35); SGPT/ALT 29 U/L (12-78); TOTAL PROTEIN 5.9 gm/dL (6.4-8.2); TRIGLYCERIDES 88 mg/dl (<150); VLDL CHOLESTEROL 18 mg/dL (6-40)
[2017-02-06 08:01] LABS: POTASSIUM 5.1 mmol/L (3.5-5.1)
[2017-02-07] VITALS (10 sets, daily range): BP systolic 94–119; BP diastolic 50–77
[2017-02-07 13:27] LABS: HEMATOCRIT 44.2 % (42.0-52.0); HEMOGLOBIN 13.9 g/dl (14.0-18.0); MEAN CELL VOLUME 102.8 fl (80.0-94.0); MEAN CORPUSCULAR HGB 32.3 pg (27.0-31.0); MEAN CORPUSCULAR HGB CONC 31.4 g/dl (33.0-37.0); MEAN PLATELET VOLUME 9.7 fl (9.6-12.3); PLATELET COUNT AUTOMATED 177 10*3/uL (130-400); RED CELL DISTRI WIDTH 13.5 % (0-14.5); WHITE BLOOD COUNT 20.6 10*3/uL (4.8-10.8)
[2017-02-07 13:41] LABS: ALBUMIN 3.5 gm/dl (3.1-4.5); ALKALINE PHOSPHATASE 91 U/L (45-117); BILIRUBIN, TOTAL 0.3 mg/dl (0.2-1.0); BUN 22 mg/dl (7-24); CARBON DIOXIDE 38 mmol/L (21-32); CHLORIDE 93 mmol/L (98-107); EST GLOM FILT AFRICAN AMERICAN > 60 ml/min; GLUCOSE 183 mg/dL (65-99); POTASSIUM 5.1 mmol/L (3.5-5.1); SGOT/AST 6 IU/L (3-35); SGPT/ALT 31 U/L (12-78); SODIUM 136 mmol/L (136-145); TOTAL PROTEIN 6.5 gm/dL (6.4-8.2)
[2017-02-07 13:44] LABS: LYMPHOCYTE # 0.4 10*3/uL (1.3-4.4); NEUTROPHIL # 19.2 10*3/uL (2.3-7.9); NEUTROPHILS 93 % (47-73); PLATELET SUFFICIENCY NORMAL (NORMAL); TOTAL CELLS COUNTED 100 #CELLS
[2017-02-08] VITALS: BP 117/76
[2017-02-08 06:00] LABS: HEMATOCRIT 41.3 % (42.0-52.0); HEMOGLOBIN 13.1 g/dl (14.0-18.0); MEAN CORPUSCULAR HGB CONC 31.7 g/dl (33.0-37.0); MEAN PLATELET VOLUME 9.5 fl (9.6-12.3); PLATELET COUNT AUTOMATED 157 10*3/uL (130-400); RED BLOOD COUNT 3.97 10*6/uL (4.50-5.90); RED CELL DISTRI WIDTH 13.3 % (0-14.5); WHITE BLOOD COUNT 14.4 10*3/uL (4.8-10.8)
[2017-02-08 06:23] LABS: BUN 31 mg/dl (7-24); CARBON DIOXIDE 40 mmol/L (21-32); CHLORIDE 88 mmol/L (98-107); EST GLOM FILT AFRICAN AMERICAN > 60 ml/min; GLUCOSE 163 mg/dL (65-99); SODIUM 129 mmol/L (136-145)
[2017-02-08 06:29] LABS: POTASSIUM 6.1 mmol/L (3.5-5.1)
[2017-02-08 06:50] LABS: LYMPHOCYTE # 0.1 10*3/uL (1.3-4.4); NEUTROPHIL # 14.3 10*3/uL (2.3-7.9); NEUTROPHILS 99 % (47-73); TOTAL CELLS COUNTED 100 #CELLS
[2017-02-08 06:51] LABS: PLATELET SUFFICIENCY NORMAL (NORMAL)
[2017-02-08 08:00] VITALS: BP 102/83
[2017-02-08 09:37] LABS: ABG BASE EXCESS 3.7 mmol/L (-2.0-2.0); ABG CO2 CONTENT 37.6 mmol/L (23-27); ABG HCO3 34.8 mmol/l (22-26); ABG TEMPERATURE 97.7 F (98.0-99.0); ARTERIAL BLOOD GAS PH 7.215 (7.35-7.45); ARTERIAL BLOOD GAS PO2 66.9 mmHg (80-90)
[2017-02-08 12:11] LABS: BUN 32 mg/dl (7-24); CHLORIDE 86 mmol/L (98-107); EST GLOM FILT AFRICAN AMERICAN > 60 ml/min; GLUCOSE 155 mg/dL (65-99); SODIUM 127 mmol/L (136-145)
[2017-02-08 12:14] LABS: CARBON DIOXIDE 40 mmol/L (21-32)
[2017-02-08 12:16] LABS: POTASSIUM 6.3 mmol/L (3.5-5.1)
[2017-02-08 13:27] LABS: ABG BASE EXCESS 5.7 mmol/L (-2.0-2.0); ABG CO2 CONTENT 38.4 mmol/L (23-27); ABG HCO3 35.8 mmol/l (22-26); ARTERIAL BLOOD GAS PH 7.258 (7.35-7.45); ARTERIAL BLOOD GAS PO2 78.8 mmHg (80-90)
[2017-02-08 16:00] VITALS: BP 148/116
[2017-02-08 17:17] LABS: ABG BASE EXCESS 6.5 mmol/L (-2.0-2.0); ABG CO2 CONTENT 38.6 mmol/L (23-27); ABG HCO3 36.2 mmol/l (22-26); ABG TEMPERATURE 97.7 F (98.0-99.0); ARTERIAL BLOOD GAS PH 7.287 (7.35-7.45); ARTERIAL BLOOD GAS PO2 65.9 mmHg (80-90)
[2017-02-08 20:00] VITALS: BP 105/83
[2017-02-09] VITALS: BP 104/76
[2017-02-09 05:44] LABS: ABG BASE EXCESS 5.5 mmol/L (-2.0-2.0); ABG CO2 CONTENT 38.6 mmol/L (23-27); ABG HCO3 35.9 mmol/l (22-26); ABG TEMPERATURE 97.6 F (98.0-99.0); ARTERIAL BLOOD GAS PH 7.248 (7.35-7.45); ARTERIAL BLOOD GAS PO2 70.4 mmHg (80-90)
[2017-02-09 06:31] LABS: HEMATOCRIT 42.8 % (42.0-52.0); HEMOGLOBIN 13.1 g/dl (14.0-18.0); MEAN CELL VOLUME 105.4 fl (80.0-94.0); MEAN CORPUSCULAR HGB 32.3 pg (27.0-31.0); MEAN CORPUSCULAR HGB CONC 30.6 g/dl (33.0-37.0); MEAN PLATELET VOLUME 9.7 fl (9.6-12.3); PLATELET COUNT AUTOMATED 139 10*3/uL (130-400); RED BLOOD COUNT 4.06 10*6/uL (4.50-5.90); RED CELL DISTRI WIDTH 13.5 % (0-14.5); WHITE BLOOD COUNT 10.5 10*3/uL (4.8-10.8)
[2017-02-09 06:40] LABS: BUN 28 mg/dl (7-24); CHLORIDE 94 mmol/L (98-107); EST GLOM FILT AFRICAN AMERICAN > 60 ml/min; GLUCOSE 176 mg/dL (65-99); POTASSIUM 5.9 mmol/L (3.5-5.1); SODIUM 136 mmol/L (136-145)
[2017-02-09 06:45] LABS: CARBON DIOXIDE 41 mmol/L (21-32)
[2017-02-09 07:10] LABS: LYMPHOCYTE # 0.2 10*3/uL (1.3-4.4); MONOCYTE # 0.2 10*3/uL (0.1-1.0); NEUTROPHIL # 10.1 10*3/uL (2.3-7.9); NEUTROPHILS 96 % (47-73); PLATELET SUFFICIENCY NORMAL (NORMAL); TOTAL CELLS COUNTED 100 #CELLS
[2017-02-09 08:00] VITALS: BP 112/86
[2017-02-09 11:49] VITALS: BP 97/60
[2017-02-09 16:00] VITALS: BP 107/79
[2017-02-09 19:41] LABS: BILIRUBIN NEGATIVE (NEGATIVE); BLOOD NEGATIVE (NEGATIVE); CLARITY CLEAR (CLEAR); COLOR YELLOW (YELLOW); GLUCOSE NEGATIVE (NEGATIVE); KETONE NEGATIVE (NEGATIVE); LEUKO ESTERASE NEGATIVE (NEGATIVE); NITRITE NEGATIVE (NEGATIVE); PH 5.5 (5.0-9.0); PROTEIN NEGATIVE (NEGATIVE); UROBILINOGEN 0.2 E.U./dl (0.2-1.0)
[2017-02-09 20:00] VITALS: BP 112/82
[2017-02-09 20:13] LABS: EPITHELIAL CELLS 0-2; RBC 0-2 rbc/hpf (0-2); URINE REFLEX COMMENT NO (NO); WBC 0-2 wbc/hpf (0-5)
[2017-02-10] VITALS: BP 130/80
[2017-02-10 07:27] LABS: HEMATOCRIT 41.6 % (42.0-52.0); HEMOGLOBIN 12.8 g/dl (14.0-18.0); IG # 0.1 10*3/uL (0.0-0.1); LYMPH # 0.4 10*3/uL (1.3-4.4); LYMPH % 2.9 % (27.0-41.0); MEAN CELL VOLUME 105.9 fl (80.0-94.0); MEAN CORPUSCULAR HGB 32.6 pg (27.0-31.0); MEAN CORPUSCULAR HGB CONC 30.8 g/dl (33.0-37.0); MEAN PLATELET VOLUME 10.1 fl (9.6-12.3); MONO # 0.8 10*3/uL (0.1-1.0); MONO % 6.6 % (3.0-9.0); NEUT # 10.7 10*3/uL (2.3-7.9); NEUT % 89.7 % (47.0-73.0); NUCLEATED RED BLOOD CELL 0.2 % (0.0-0.0); PLATELET COUNT AUTOMATED 126 10*3/uL (130-400); RED BLOOD COUNT 3.93 10*6/uL (4.50-5.90); RED CELL DISTRI WIDTH 13.4 % (0-14.5); WHITE BLOOD COUNT 11.9 10*3/uL (4.8-10.8)
[2017-02-10 07:54] LABS: BUN 33 mg/dl (7-24); CARBON DIOXIDE 35 mmol/L (21-32); CHLORIDE 95 mmol/L (98-107); EST GLOM FILT AFRICAN AMERICAN > 60 ml/min; GLUCOSE 176 mg/dL (65-99); POTASSIUM 5.4 mmol/L (3.5-5.1); SODIUM 135 mmol/L (136-145)
[2017-02-10 08:00] VITALS: BP 104/60; BP 98/65
[2017-02-10 08:18] LABS: ABG BASE EXCESS 0.5 mmol/L (-2.0-2.0); ABG CO2 CONTENT 34.8 mmol/L (23-27); ARTERIAL BLOOD GAS PO2 65.3 mmHg (80-90)
[2017-02-10 08:24] LABS: ARTERIAL BLOOD GAS PH 7.17 (7.35-7.45)
[2017-02-10 12:00] VITALS: BP 98/61
[2017-02-10 16:00] VITALS: BP 98/67
[2017-02-10 20:00] VITALS: BP 114/59
[2017-02-11] VITALS: BP 116/61
[2017-02-11 06:44] LABS: HEMOGLOBIN 11.9 g/dl (14.0-18.0); IG # 0.1 10*3/uL (0.0-0.1); LYMPH # 0.5 10*3/uL (1.3-4.4); LYMPH % 4.1 % (27.0-41.0); MEAN CORPUSCULAR HGB 33.1 pg (27.0-31.0); MEAN CORPUSCULAR HGB CONC 32.2 g/dl (33.0-37.0); MEAN PLATELET VOLUME 10.4 fl (9.6-12.3); MONO # 0.8 10*3/uL (0.1-1.0); MONO % 6.6 % (3.0-9.0); NEUT # 10.1 10*3/uL (2.3-7.9); NEUT % 88.9 % (47.0-73.0); PLATELET COUNT AUTOMATED 110 10*3/uL (130-400); RED CELL DISTRI WIDTH 13.3 % (0-14.5); WHITE BLOOD COUNT 11.3 10*3/uL (4.8-10.8)
[2017-02-11 06:46] LABS: MEAN CELL VOLUME 102.8 fl (80.0-94.0)
[2017-02-11 06:54] LABS: BUN 41 mg/dl (7-24); CHLORIDE 93 mmol/L (98-107); EST GLOM FILT AFRICAN AMERICAN > 60 ml/min; GLUCOSE 148 mg/dL (65-99); POTASSIUM 4.7 mmol/L (3.5-5.1); SODIUM 135 mmol/L (136-145)
[2017-02-11 07:01] LABS: CARBON DIOXIDE 41 mmol/L (21-32)
[2017-02-11 08:00] VITALS: BP 92/46
[2017-02-11 12:00] VITALS: BP 102/59
[2017-02-11 16:00] VITALS: BP 123/75
[2017-02-11 20:00] VITALS: BP 121/65
[2017-02-12] VITALS: BP 119/72
[2017-02-12 07:16] LABS: HEMATOCRIT 38.4 % (42.0-52.0); HEMOGLOBIN 12.3 g/dl (14.0-18.0); MEAN CELL VOLUME 101.6 fl (80.0-94.0); MEAN CORPUSCULAR HGB 32.5 pg (27.0-31.0); MEAN PLATELET VOLUME 10.5 fl (9.6-12.3); PLATELET COUNT AUTOMATED 94 10*3/uL (130-400); RED BLOOD COUNT 3.78 10*6/uL (4.50-5.90); RED CELL DISTRI WIDTH 13.3 % (0-14.5); WHITE BLOOD COUNT 8.9 10*3/uL (4.8-10.8)
[2017-02-12 07:38] LABS: BUN 36 mg/dl (7-24); CHLORIDE 96 mmol/L (98-107); EST GLOM FILT AFRICAN AMERICAN > 60 ml/min; GLUCOSE 169 mg/dL (65-99); POTASSIUM 4.9 mmol/L (3.5-5.1); SODIUM 138 mmol/L (136-145)
[2017-02-12 07:43] LABS: LYMPHOCYTE # 0.2 10*3/uL (1.3-4.4); METAMYELOCYTES 1 % (0-0); MONOCYTE # 0.2 10*3/uL (0.1-1.0); NEUTROPHIL # 8.5 10*3/uL (2.3-7.9); NEUTROPHILS 95 % (47-73); TOTAL CELLS COUNTED 100 #CELLS
[2017-02-12 07:44] LABS: PLATELET SUFFICIENCY LOW (NORMAL)
[2017-02-12 07:50] LABS: CARBON DIOXIDE 41 mmol/L (21-32)
[2017-02-12 08:00] VITALS: BP 95/62
[2017-02-12 12:00] VITALS: BP 92/58
[2017-02-12 16:00] VITALS: BP 90/62
[2017-02-12 20:00] VITALS: BP 103/63
[2017-02-12 21:00] VITALS: BP 98/64
[2017-02-13] VITALS: BP 103/53
[2017-02-13 06:04] LABS: HEMOGLOBIN 12.1 g/dl (14.0-18.0); MEAN CELL VOLUME 100.8 fl (80.0-94.0); MEAN CORPUSCULAR HGB 32.1 pg (27.0-31.0); MEAN CORPUSCULAR HGB CONC 31.8 g/dl (33.0-37.0); MEAN PLATELET VOLUME 9.9 fl (9.6-12.3); PLATELET COUNT AUTOMATED 105 10*3/uL (130-400); RED BLOOD COUNT 3.77 10*6/uL (4.50-5.90); RED CELL DISTRI WIDTH 13.2 % (0-14.5); WHITE BLOOD COUNT 9.9 10*3/uL (4.8-10.8)
[2017-02-13 06:23] LABS: BUN 30 mg/dl (7-24); CARBON DIOXIDE 36 mmol/L (21-32); CHLORIDE 98 mmol/L (98-107); EST GLOM FILT AFRICAN AMERICAN > 60 ml/min; GLUCOSE 161 mg/dL (65-99); POTASSIUM 4.3 mmol/L (3.5-5.1); SODIUM 138 mmol/L (136-145)
[2017-02-13 07:06] LABS: LYMPHOCYTE # 0.1 10*3/uL (1.3-4.4); MONOCYTE # 0.3 10*3/uL (0.1-1.0); NEUTROPHIL # 9.5 10*3/uL (2.3-7.9); NEUTROPHILS 96 % (47-73); PLATELET SUFFICIENCY LOW (NORMAL); TOTAL CELLS COUNTED 100 #CELLS
[2017-02-13 08:10] VITALS: BP 91/50
[2017-02-13 12:00] VITALS: BP 108/74
[2017-02-13] MEDS ORDERED: ELIQUIS5 M1 PO (13:33)
[2017-02-13] MEDS ORDERED: ATENOLOL50 M1 PO (13:33)
[2017-02-13] MEDS ORDERED: ACETAZOLAMIDE250 MG PO (13:33)
[2017-02-13] MEDS ORDERED: FUROSEMIDE10 MG/ML IV (13:33)
[2017-02-13] MEDS ORDERED: NOVAPLUS SOLU-M40 MG IV (13:33)
== END 2017-02-13 15:35 | DRG 871 ==
LOC: ED 11:43 → 4E 13:30 → EDHOLD 13:30 → 4E 14:09
PROVIDERS: Emergency Medicine; Hospitalist; Internal Medicine; Internal Medicine Critical Care Medicine; Internal Medicine Hospice and Palliative Medicine; Student in an Organized Health Care Education/Training Program
PROC: 5A09457 Assistance with Respiratory Ventilation, 24-96 Consecutive Hours, Continuous Positive Airway Pressure (ICD-10-PCS; principal; 2017-02-08)
DX: A41.9 Sepsis, unspecified organism (principal); J18.9 Pneumonia, unspecified organism; J96.01 Acute respiratory failure with hypoxia; I50.33 Acute on chronic diastolic (congestive) heart failure; E87.3 Alkalosis; J96.10 Chronic respiratory failure, unspecified whether with hypoxia or hypercapnia; Z99.81 Dependence on supplemental oxygen; F33.2 Major depressive disorder, recurrent severe without psychotic features; J44.1 Chronic obstructive pulmonary disease with (acute) exacerbation; J44.0 Chronic obstructive pulmonary disease with (acute) lower respiratory infection; F17.200 Nicotine dependence, unspecified, uncomplicated; I48.91 Unspecified atrial fibrillation; Z96.1 Presence of intraocular lens; R10.32 Left lower quadrant pain; I25.10 Atherosclerotic heart disease of native coronary artery without angina pectoris; E55.9 Vitamin D deficiency, unspecified; E53.8 Deficiency of other specified B group vitamins; N40.0 Benign prostatic hyperplasia without lower urinary tract symptoms; G47.33 Obstructive sleep apnea (adult) (pediatric); E66.01 Morbid (severe) obesity due to excess calories; E87.5 Hyperkalemia; E78.5 Hyperlipidemia, unspecified; Z98.49 Cataract extraction status, unspecified eye; Z95.5 Presence of coronary angioplasty implant and graft; Z82.5 Family history of asthma and other chronic lower respiratory diseases; Z80.1 Family history of malignant neoplasm of trachea, bronchus and lung; Z88.8 Allergy status to other drugs, medicaments and biological substances; Z71.6 Tobacco abuse counseling; Z79.82 Long term (current) use of aspirin; Z79.1 Long term (current) use of non-steroidal anti-inflammatories (NSAID); Z79.899 Other long term (current) drug therapy; Z85.46 Personal history of malignant neoplasm of prostate; Z68.31 Body mass index [BMI] 31.0-31.9, adult; I71.4 Abdominal aortic aneurysm, without rupture

== ENCOUNTER 2017-03-26 17:15 | Inpatient (IN) | payer MEDICARE ==
[2017-03-26] VITALS (12 sets, daily range): BP systolic 72–128; BP diastolic 31–83
[~2017-03-26] VITALS: Ht 162.6 cm; Wt 94.3 kg
[~2017-03-26 17:15] MED LIST changes: +ACETAZOLAMIDE250 MG PO; +ATENOLOL50 M1 PO; +ELIQUIS5 M1 PO; +FUROSEMIDE10 MG/ML IV; +NICOTINE PATCH1 EAC1 TD; +NOVAPLUS SOLU-M40 MG IV
[2017-03-26] MEDS ORDERED: TOPROL XL50 M1 PO (17:33)
[2017-03-26] MEDS ORDERED: FUROSEMIDE40 MG PO (17:34)
[2017-03-26] MEDS ORDERED: SALINE NOSE SPR45 ML NAS (17:36)
[2017-03-26] MEDS ORDERED: Motrin,Rufen800 MG PO (17:36)
[2017-03-26 17:45] LABS: BASO % 0.7 % (0.0-1.0); EOS # 0.1 10*3/uL (0.0-0.4); EOS % 1.8 % (1.0-4.0); HEMATOCRIT 39.9 % (42.0-52.0); HEMOGLOBIN 12.1 g/dl (14.0-18.0); LYMPH # 1.6 10*3/uL (1.3-4.4); LYMPH % 27.2 % (27.0-41.0); MEAN CELL VOLUME 103.9 fl (80.0-94.0); MEAN CORPUSCULAR HGB 31.5 pg (27.0-31.0); MEAN CORPUSCULAR HGB CONC 30.3 g/dl (33.0-37.0); MEAN PLATELET VOLUME 9.4 fl (9.6-12.3); MONO # 0.6 10*3/uL (0.1-1.0); MONO % 10.6 % (3.0-9.0); NEUT # 3.5 10*3/uL (2.3-7.9); NEUT % 59.2 % (47.0-73.0); PLATELET COUNT AUTOMATED 189 10*3/uL (130-400); RED BLOOD COUNT 3.84 10*6/uL (4.50-5.90); RED CELL DISTRI WIDTH 15.4 % (0-14.5)
[2017-03-26 17:54] LABS: PROTHROMBIN TIME 10.8 SECONDS (9.0-12.4)
[2017-03-26] MEDS ORDERED: ATORVASTATIN CA10 M1 PO (17:55)
[2017-03-26 18:02] LABS: ALBUMIN 3.2 gm/dl (3.1-4.5); ALKALINE PHOSPHATASE 117 U/L (45-117); BILIRUBIN, TOTAL 0.3 mg/dl (0.2-1.0); BUN 9 mg/dl (7-24); CARBON DIOXIDE 31 mmol/L (21-32); CHLORIDE 106 mmol/L (98-107); EST GLOM FILT AFRICAN AMERICAN > 60 ml/min; GLUCOSE 145 mg/dL (65-99); MAGNESIUM 2.2 mg/dL (1.5-2.1); POTASSIUM 3.4 mmol/L (3.5-5.1); SGOT/AST 9 IU/L (3-35); SGPT/ALT 23 U/L (12-78); SODIUM 146 mmol/L (136-145); TOTAL PROTEIN 6.7 gm/dL (6.4-8.2)
[2017-03-26 18:12] LABS: TROPONIN I < 0.015 ng/ml (<0.045)
[2017-03-26 20:25] LABS: BILIRUBIN NEGATIVE (NEGATIVE); BLOOD NEGATIVE (NEGATIVE); CLARITY SL CLOUDY (CLEAR); COLOR YELLOW (YELLOW); GLUCOSE NEGATIVE (NEGATIVE); KETONE NEGATIVE (NEGATIVE); LEUKO ESTERASE NEGATIVE (NEGATIVE); NITRITE NEGATIVE (NEGATIVE); PROTEIN TRACE (NEGATIVE)
[2017-03-26 20:33] LABS: BACTERIA 1+; CALCIUM OXALATE CRYSTALS 1+; URINE REFLEX COMMENT YES (NO)
[2017-03-26] MEDS ORDERED: ACETAZOLAMIDE250 MG PO (21:14)
[2017-03-27] VITALS (13 sets, daily range): BP systolic 84–128; BP diastolic 53–83
[2017-03-27 00:43] LABS: CKMB 1.5 ng/ml (0.5-3.6)
[2017-03-27 06:38] LABS: BASO % 0.6 % (0.0-1.0); EOS # 0.1 10*3/uL (0.0-0.4); EOS % 1.7 % (1.0-4.0); HEMATOCRIT 36.4 % (42.0-52.0); HEMOGLOBIN 10.9 g/dl (14.0-18.0); IG # 0.1 10*3/uL (0.0-0.1); LYMPH # 1.1 10*3/uL (1.3-4.4); LYMPH % 17.3 % (27.0-41.0); MEAN CELL VOLUME 106.7 fl (80.0-94.0); MEAN CORPUSCULAR HGB CONC 29.9 g/dl (33.0-37.0); MEAN PLATELET VOLUME 9.5 fl (9.6-12.3); MONO # 0.6 10*3/uL (0.1-1.0); MONO % 9.9 % (3.0-9.0); NEUT # 4.4 10*3/uL (2.3-7.9); NEUT % 69.4 % (47.0-73.0); PLATELET COUNT AUTOMATED 183 10*3/uL (130-400); RED BLOOD COUNT 3.41 10*6/uL (4.50-5.90); RED CELL DISTRI WIDTH 15.4 % (0-14.5); WHITE BLOOD COUNT 6.3 10*3/uL (4.8-10.8)
[2017-03-27 06:57] LABS: HEMOGLOBIN A1c 7.2 % (4.8-5.6)
[2017-03-27 07:11] LABS: BILIRUBIN, TOTAL 0.2 mg/dl (0.2-1.0); BUN 9 mg/dl (7-24); CARBON DIOXIDE 31 mmol/L (21-32); CHLORIDE 106 mmol/L (98-107); EST GLOM FILT AFRICAN AMERICAN > 60 ml/min; GLUCOSE 181 mg/dL (65-99); MAGNESIUM 2.2 mg/dL (1.5-2.1); PHOSPHOROUS 3.3 mg/dL (2.5-4.9); POTASSIUM 3.9 mmol/L (3.5-5.1); SGOT/AST 13 IU/L (3-35); SGPT/ALT 23 U/L (12-78); SODIUM 144 mmol/L (136-145); TOTAL PROTEIN 6.5 gm/dL (6.4-8.2)
[2017-03-27 07:13] LABS: ALKALINE PHOSPHATASE 104 U/L (45-117)
[2017-03-27 12:14] LABS: CKMB 3.1 ng/ml (0.5-3.6)
[2017-03-28] VITALS (9 sets, daily range): BP systolic 91–110; BP diastolic 52–78
[2017-03-28 06:57] LABS: BASO % 0.2 % (0.0-1.0); HEMATOCRIT 36.9 % (42.0-52.0); HEMOGLOBIN 11.1 g/dl (14.0-18.0); IG # 0.1 10*3/uL (0.0-0.1); LYMPH # 0.6 10*3/uL (1.3-4.4); LYMPH % 12.9 % (27.0-41.0); MEAN CELL VOLUME 104.2 fl (80.0-94.0); MEAN CORPUSCULAR HGB 31.4 pg (27.0-31.0); MEAN CORPUSCULAR HGB CONC 30.1 g/dl (33.0-37.0); MEAN PLATELET VOLUME 9.8 fl (9.6-12.3); MONO # 0.1 10*3/uL (0.1-1.0); MONO % 2.8 % (3.0-9.0); NEUT # 4.1 10*3/uL (2.3-7.9); NEUT % 83.1 % (47.0-73.0); PLATELET COUNT AUTOMATED 152 10*3/uL (130-400); RED BLOOD COUNT 3.54 10*6/uL (4.50-5.90); RED CELL DISTRI WIDTH 15.1 % (0-14.5)
[2017-03-28 07:27] LABS: BILIRUBIN, TOTAL 0.5 mg/dl (0.2-1.0); BUN 10 mg/dl (7-24); CARBON DIOXIDE 31 mmol/L (21-32); CHLORIDE 104 mmol/L (98-107); EST GLOM FILT AFRICAN AMERICAN > 60 ml/min; GLUCOSE 197 mg/dL (65-99); MAGNESIUM 2.2 mg/dL (1.5-2.1); POTASSIUM 4.5 mmol/L (3.5-5.1); SGPT/ALT 25 U/L (12-78); SODIUM 140 mmol/L (136-145); TOTAL PROTEIN 6.6 gm/dL (6.4-8.2)
[2017-03-28 07:29] LABS: ALKALINE PHOSPHATASE 102 U/L (45-117); SGOT/AST 12 IU/L (3-35)
[2017-03-29] VITALS: BP 99/60
[2017-03-29 06:54] LABS: HEMATOCRIT 35.8 % (42.0-52.0); HEMOGLOBIN 10.7 g/dl (14.0-18.0); MEAN CELL VOLUME 104.4 fl (80.0-94.0); MEAN CORPUSCULAR HGB 31.2 pg (27.0-31.0); MEAN CORPUSCULAR HGB CONC 29.9 g/dl (33.0-37.0); MEAN PLATELET VOLUME 9.8 fl (9.6-12.3); PLATELET COUNT AUTOMATED 161 10*3/uL (130-400); RED BLOOD COUNT 3.43 10*6/uL (4.50-5.90); RED CELL DISTRI WIDTH 15.4 % (0-14.5); WHITE BLOOD COUNT 10.8 10*3/uL (4.8-10.8)
[2017-03-29 07:18] LABS: LYMPHOCYTE # 0.5 10*3/uL (1.3-4.4); METAMYELOCYTES 1 % (0-0); MONOCYTE # 0.2 10*3/uL (0.1-1.0); MYELOCYTES 1 % (0-0); NEUTROPHIL # 9.8 10*3/uL (2.3-7.9); NEUTROPHILS 91 % (47-73); PLATELET SUFFICIENCY NORMAL (NORMAL); TEAR DROP CELLS FEW; TOTAL CELLS COUNTED 100 #CELLS
[2017-03-29 07:20] LABS: ALKALINE PHOSPHATASE 92 U/L (45-117); BILIRUBIN, TOTAL 0.3 mg/dl (0.2-1.0); BUN 15 mg/dl (7-24); CARBON DIOXIDE 34 mmol/L (21-32); CHLORIDE 104 mmol/L (98-107); EST GLOM FILT AFRICAN AMERICAN > 60 ml/min; FREE T4 0.82 ng/dl (0.76-1.46); GLUCOSE 206 mg/dL (65-99); POTASSIUM 5.1 mmol/L (3.5-5.1); SGOT/AST 12 IU/L (3-35); SGPT/ALT 26 U/L (12-78); SODIUM 144 mmol/L (136-145); TOTAL PROTEIN 6.3 gm/dL (6.4-8.2)
[2017-03-29 08:00] VITALS: BP 116/82
[2017-03-29 12:00] VITALS: BP 110/73
[2017-03-29] MEDS ORDERED: LEVAQUIN500 M2 PO (15:55)
[2017-03-29 16:00] VITALS: BP 100/68
[2017-03-29] MEDS ORDERED: D-1000 185 MG-11 TAB PO (16:01)
[2017-03-29] MEDS ORDERED: DILTIAZEM CD240 MG PO (16:01)
[2017-03-29] MEDS ORDERED: ATENOLOL50 M1 PO (16:01)
[2017-03-29] MEDS ORDERED: RISPERIDONE0.5 MG PO (16:06)
== END 2017-03-29 17:30 | disposition home or self-care (01) | DRG 871 ==
LOC: ED 17:15 → 4E 19:05 → EDHOLD 19:05 → 4E 19:18
PROVIDERS: Family Medicine; Internal Medicine; Internal Medicine Nephrology; Nurse Practitioner Family
DX: A41.9 Sepsis, unspecified organism (principal); J69.0 Pneumonitis due to inhalation of food and vomit; J96.21 Acute and chronic respiratory failure with hypoxia; I95.9 Hypotension, unspecified; E87.0 Hyperosmolality and hypernatremia; Z99.81 Dependence on supplemental oxygen; E44.0 Moderate protein-calorie malnutrition; F23 Brief psychotic disorder; E53.0 Riboflavin deficiency; I48.91 Unspecified atrial fibrillation; E87.6 Hypokalemia; D53.9 Nutritional anemia, unspecified; J44.9 Chronic obstructive pulmonary disease, unspecified; I25.10 Atherosclerotic heart disease of native coronary artery without angina pectoris; F32.9 Major depressive disorder, single episode, unspecified; E55.9 Vitamin D deficiency, unspecified; E78.5 Hyperlipidemia, unspecified; F17.210 Nicotine dependence, cigarettes, uncomplicated; N40.0 Benign prostatic hyperplasia without lower urinary tract symptoms; G47.33 Obstructive sleep apnea (adult) (pediatric); Z72.89 Other problems related to lifestyle; Z83.6 Family history of other diseases of the respiratory system; Z80.1 Family history of malignant neoplasm of trachea, bronchus and lung; Z71.6 Tobacco abuse counseling; Z79.82 Long term (current) use of aspirin; Z79.01 Long term (current) use of anticoagulants; Z88.8 Allergy status to other drugs, medicaments and biological substances; Z68.36 Body mass index [BMI] 36.0-36.9, adult

== ENCOUNTER → 2017-06-05 | Outpatient (CLI) | payer OTHER ==
[~2017-06-05] MED LIST changes: +ATORVASTATIN CA10 M1 PO; +DILTIAZEM CD240 MG PO; +FUROSEMIDE40 MG PO; +Motrin,Rufen800 MG PO; +RISPERIDONE0.5 MG PO; +SALINE NOSE SPR45 ML NAS; +TOPROL XL50 M1 PO
[2017-06-05 12:57] LABS: BASO # 0.1 10*3/uL (0.0-0.1); BASO % 0.5 % (0.0-1.0); EOS # 0.1 10*3/uL (0.0-0.4); EOS % 1.3 % (1.0-4.0); HEMATOCRIT 42.7 % (42.0-52.0); HEMOGLOBIN 13.5 g/dl (14.0-18.0); LYMPH # 1.8 10*3/uL (1.3-4.4); LYMPH % 19.7 % (27.0-41.0); MEAN CELL VOLUME 97.9 fl (80.0-94.0); MEAN CORPUSCULAR HGB CONC 31.6 g/dl (33.0-37.0); MEAN PLATELET VOLUME 9.6 fl (9.6-12.3); MONO # 0.8 10*3/uL (0.1-1.0); MONO % 8.4 % (3.0-9.0); NEUT # 6.5 10*3/uL (2.3-7.9); NEUT % 69.7 % (47.0-73.0); PLATELET COUNT AUTOMATED 176 10*3/uL (130-400); RED BLOOD COUNT 4.36 10*6/uL (4.50-5.90); WHITE BLOOD COUNT 9.4 10*3/uL (4.8-10.8)
[2017-06-05 13:28] LABS: ALBUMIN 3.5 gm/dl (3.1-4.5); ALKALINE PHOSPHATASE 167 U/L (45-117); BUN 8 mg/dl (7-24); CHLORIDE 106 mmol/L (98-107); CREATININE 0.98 mg/dL (0.70-1.30); POTASSIUM 4.1 mmol/L (3.5-5.1); SGOT/AST 11 IU/L (3-35); SGPT/ALT 13 U/L (12-78); SODIUM 139 mmol/L (136-145); TOTAL PROTEIN 6.8 gm/dL (6.4-8.2)
== END | disposition home or self-care (01) ==
LOC: LAB 12:34 → US 13:00 → CT 13:00
PROVIDERS: Urology
DX: Z12.5 Encounter for screening for malignant neoplasm of prostate (principal); N43.2 Other hydrocele; D40.0 Neoplasm of uncertain behavior of prostate; I10 Essential (primary) hypertension; N50.812 Left testicular pain; Z90.79 Acquired absence of other genital organ(s)

== ENCOUNTER → 2017-11-14 | Outpatient (CLI) | payer OTHER | END | disposition home or self-care (01) | LOC: LAB 19:07 | DX: K92.2 Gastrointestinal hemorrhage, unspecified (principal) ==

== ENCOUNTER → 2017-11-21 | Day surgery (SDC) | payer OTHER ==
[~2017-11-21] VITALS: Ht 162.5 cm; Wt 83.9 kg
[~2017-11-21] MED LIST changes: +ACETAZOLAMIDE125 MG PO; +COMBIVENT RESPIM4 GM INH; +DIGITEK250 MCG PO; +XARELTO10 MG PO
--- NOTE | ~2017-11-21 | PROC NOTE ---
[place], [place] PROCEDURE NOTE NAME: ERNESTINE PLATA SR [facility] #: [id number] UNIT #: [id number] ROOM: DOCTOR: SYDNI VALLE MD BIRTHDATE: [birth year] DOS: 11/21/2017 PREOPERATIVE DIAGNOSES: Anemia, fatigue. POSTOPERATIVE DIAGNOSES: Anemia, fatigue. PROCEDURE: Esophagogastroduodenoscopy, colonoscopy. ENDOSCOPIST: Sydni Valle MD MANAGER FOOD BEVERAGE: BENSON. ANESTHESIA: MAC. INDICATIONS: This is a 67-year-old gentleman who has been referred for workup for anemia and fatigue. The procedure and its complications were explained to the patient in detail. Complications that were discussed included but were not limited to bleeding, missed lesions, colon perforation, stomach perforation and he agreed to proceed. DESCRIPTION OF PROCEDURE: After identifying the patient, the patient was brought to the endoscopy suite and placed in the left lateral position. After IV sedation was administered by the anesthesia team, a timeout procedure was called. A bite block was placed. An adult esophagogastroduodenoscope was passed through the mouth into the pharynx, esophagus, stomach and the first 2 parts of the duodenum. There was found to be mild antral gastritis and some mild duodenitis, but no active bleeding could be seen. The scope was retroflexed and the entire stomach was visualized and these findings were confirmed. The scope was then withdrawn and the esophagus was visualized in its entirety. There was no bleeding or esophagitis that could be seen in the esophagus. The scope was then withdrawn and the patient then underwent a colonoscopy. Prior to this, a digital rectal exam was performed, which was within normal limits. The scope was then advanced into the rectum, sigmoid colon, descending colon, transverse colon and ascending colon up to the cecum. Upon reaching the cecum, the scope was withdrawn. There was no bleeding or any lesions that could be visualized in the entirety of the colon. Total withdrawal time was approximately 6 minutes. There were mild internal hemorrhoids that could be visualized, but they were not complicated and there was no bleeding. The scope was withdrawn and the patient was taken to the recovery room in stable fashion. Based on this finding, the patient is recommended to have another colonoscopy in the next 10 years or sooner if he develops new symptoms. These findings were discussed with the patient's in the recovery room. [place], [place] PROCEDURE NOTE NAME: ERNESTINE PLATA SR UNIT #: [id number] ROOM: DOCTOR: SYDNI VALLE MD BIRTHDATE: [birth year] Sydni Valle MD CM:PROCNOTE:PROCEDURE NOTE 0946 [id number] SYDNI VALLE MD
[2017-11-21 08:56] VITALS: BP 93/65
[2017-11-21 09:38] VITALS: BP 114/70
[2017-11-21 09:53] VITALS: BP 104/72
[2017-11-21 10:08] VITALS: BP 106/72
== END ==
LOC: SDC 11-20 08:00
DX: K29.90 Gastroduodenitis, unspecified, without bleeding (principal); K64.8 Other hemorrhoids; D64.9 Anemia, unspecified; Z88.8 Allergy status to other drugs, medicaments and biological substances; I25.10 Atherosclerotic heart disease of native coronary artery without angina pectoris; J44.9 Chronic obstructive pulmonary disease, unspecified; E78.00 Pure hypercholesterolemia, unspecified; K21.9 Gastro-esophageal reflux disease without esophagitis; F32.9 Major depressive disorder, single episode, unspecified; Z85.828 Personal history of other malignant neoplasm of skin; Z95.5 Presence of coronary angioplasty implant and graft; F17.210 Nicotine dependence, cigarettes, uncomplicated; Z79.899 Other long term (current) drug therapy; E66.9 Obesity, unspecified; Z68.31 Body mass index [BMI] 31.0-31.9, adult; Z98.890 Other specified postprocedural states; Z86.010 Personal history of colon polyps; K92.1 Melena; Z82.49 Family history of ischemic heart disease and other diseases of the circulatory system

== ENCOUNTER → 2017-12-19 | Outpatient (CLI) | payer OTHER | END | disposition home or self-care (01) | LOC: US 12-11 12:30 | DX: N32.89 Other specified disorders of bladder (principal) ==

== ENCOUNTER → 2018-04-11 | Outpatient (CLI) | payer OTHER | END | disposition home or self-care (01) | LOC: RAD 11:07 | DX: S34.101A Unspecified injury to L1 level of lumbar spinal cord, initial encounter (principal); J44.1 Chronic obstructive pulmonary disease with (acute) exacerbation; L02.91 Cutaneous abscess, unspecified; X58.XXXA Exposure to other specified factors, initial encounter; Y93.89 Activity, other specified; Y92.89 Other specified places as the place of occurrence of the external cause; Y99.8 Other external cause status ==

== ENCOUNTER 2018-09-29 12:44 | Inpatient (IN) | payer OTHER ==
[~2018-09-29] VITALS: Ht 162.5 cm; Wt 60.9 kg
--- NOTE | ~2018-09-29 | EKG ---
[place], [place] ELECTROCARDIOGRAM REPORT NAME: ERNESTINE PLATA SR UNIT #: [id number] ROOM: 505 DOCTOR: MARJORIE DRAFT REPORT BIRTHDATE: [birth year] [facility] Test Date: 2018-09-29 Test Time: 12:46:50 Pat Name: ERNESTINE PLATA Department: Room: 505 Gender: M Wireless Development Manager: Paige Joseph : 1950 Requested By: SHERI BUNCH Order Number: [id number] Reading MD: Josiah Benites MD Measurements Intervals [place] Rate: 104 P: [place]: QRS: 67 QRSD: 80 T: -83 QT: 265 QTc: 349 Interpretive Statements Atrial fibrillation Nonspecific repol abnormality, diffuse leads Baseline wander in lead(s) V1 Electronically Signed On 09-30-2018 16:52:35 PST by Josiah Benites MD CM:EKGRPT:ELECTROCARDIOGRAM REPORT 1246 1652 SHERI BUNCH MD EPIPHANY DRAFT REPORT SHERI BUNCH MD
--- NOTE | ~2018-09-29 | EKG ---
[place], [place] ELECTROCARDIOGRAM REPORT NAME: ERNESTINE PLATA SR UNIT #: [id number] ROOM: 505 DOCTOR: MARJORIE DRAFT REPORT BIRTHDATE: [birth year] [facility] Test Date: 2018-09-29 Test Time: 15:36:06 Pat Name: ERNESTINE PLATA Department: Room: 505 Gender: M Application Support Lead: Quynh Jones : 1950 Requested By: SHERI BUNCH Order Number: [id number] Reading MD: Josiah Benites MD Measurements Intervals [place] Rate: 96 P: [place]: QRS: 61 QRSD: 84 T: -90 QT: 293 QTc: 371 Interpretive Statements Atrial fibrillation Nonspecific repol abnormality, diffuse leads Baseline wander in lead(s) V3 No change from earlier ECG this date Electronically Signed On 09-30-2018 16:54:23 PST by Josiah Benites MD CM:EKGRPT:ELECTROCARDIOGRAM REPORT 1536 1654 SHERI AMADOR DRAFT REPORT SHERI BUNCH MD
--- NOTE | ~2018-09-29 | EKG ---
[place], [place] ELECTROCARDIOGRAM REPORT NAME: ERNESTINE PLATA SR UNIT #: [id number] ROOM: 505 DOCTOR: MARJORIE DRAFT REPORT BIRTHDATE: [birth year] [facility] Test Date: 2018-09-29 Test Time: 19:10:49 Pat Name: ERNESTINE PLATA Department: Room: 505 Gender: M Shearer Helper: Quynh Jones : 1950 Requested By: SHERI BUNCH Order Number: [id number] Reading MD: Josiah Benites MD Measurements Intervals [place] Rate: 92 P: [place]: QRS: 58 QRSD: 87 T: -80 QT: 332 QTc: 411 Interpretive Statements Atrial fibrillation Nonspecific repol abnormality, diffuse leads Baseline wander in lead(s) I,II,aVR No change from earlier ECG this date Electronically Signed On 09-30-2018 17:01:31 PST by Josiah Benites MD CM:EKGRPT:ELECTROCARDIOGRAM REPORT 09 1701 SHERI AMADOR DRAFT REPORT SHERI BUNCH MD
[2018-09-29 12:47] VITALS: BP 119/84
[2018-09-29 13:16] LABS: HEMOGLOBIN 15.5 g/dl (14.0-18.0); MEAN CELL VOLUME 98.2 fl (80.0-94.0); MEAN CORPUSCULAR HGB 31.7 pg (27.0-31.0); MEAN CORPUSCULAR HGB CONC 32.3 g/dl (33.0-37.0); MEAN PLATELET VOLUME 9.4 fl (9.6-12.3); PLATELET COUNT AUTOMATED 209 10*3/uL (130-400); RED BLOOD COUNT 4.89 10*6/uL (4.50-5.90); RED CELL DISTRI WIDTH 13.6 % (0-14.5); WHITE BLOOD COUNT 14.5 10*3/uL (4.8-10.8)
[2018-09-29 13:29] LABS: ACT PARTIAL THROMBO TIME 20.3 SECONDS (20.8-31.5)
[2018-09-29 13:34] LABS: ALBUMIN 3.5 gm/dl (3.1-4.5); ALKALINE PHOSPHATASE 107 U/L (45-117); BUN 16 mg/dl (7-24); CHLORIDE 109 mmol/L (98-107); CREATININE 0.76 mg/dL (0.70-1.30); POTASSIUM 4.9 mmol/L (3.5-5.1); SGOT/AST 8 IU/L (3-35); SGPT/ALT 28 U/L (12-78); SODIUM 139 mmol/L (136-145); TOTAL PROTEIN 6.9 gm/dL (6.4-8.2)
[2018-09-29 13:40] LABS: TROPONIN I < 0.015 ng/ml (<0.045)
[2018-09-29 13:41] LABS: PLATELET SUFFICIENCY NORMAL (NORMAL); TOTAL CELLS COUNTED 100 #CELLS
[2018-09-29 14:57] VITALS: BP 99/55
[2018-09-29 15:29] VITALS: BP 96/50
[2018-09-29 15:52] VITALS: BP 104/66
[2018-09-29 16:20] VITALS: BP 121/74
[2018-09-29] MEDS ORDERED: ACETAZOLAMIDE250 MG PO (16:21)
[2018-09-29] MEDS ORDERED: SYMB160 INH (16:21)
[2018-09-29] MEDS ORDERED: KLOR-CON 1010 ME1 PO (16:22)
[2018-09-29] MEDS ORDERED: CARTIA XT120 MG PO (16:24)
[2018-09-29] MEDS ORDERED: LIPITOR40 MG PO (16:24)
[2018-09-29] MEDS ORDERED: Ipratropium Brom3 ML INH (16:25)
[2018-09-29] MEDS ORDERED: DIGOXIN250 MCG PO (16:26)
[2018-09-29] MEDS ORDERED: XARE20MG PO (16:26)
[2018-09-29] MEDS ORDERED: PROTONIX40 MG PO (16:27)
[2018-09-29] MEDS ORDERED: TRAZODONE100 MG PO (16:27)
[2018-09-29] MEDS ORDERED: LASIX40 MG PO (16:30)
[2018-09-29 19:54] LABS: BILIRUBIN NEGATIVE (NEGATIVE); BLOOD NEGATIVE (NEGATIVE); CLARITY CLEAR (CLEAR); COLOR YELLOW (YELLOW); GLUCOSE NEGATIVE (NEGATIVE); KETONE NEGATIVE (NEGATIVE); LEUKO ESTERASE TRACE (NEGATIVE); NITRITE NEGATIVE (NEGATIVE); SPECIFIC GRAVITY 1.015 (1.005-1.030); UROBILINOGEN 0.2 E.U./dl (0.2-1.0)
[2018-09-29 20:00] VITALS: BP 102/64; BP 99/64
[2018-09-29 20:11] LABS: BACTERIA 1+; EPITHELIAL CELLS 0-2; RBC 0-2 rbc/hpf (0-2)
[2018-09-30] VITALS: BP 90/41
[2018-09-30 07:01] LABS: HEMATOCRIT 42.7 % (42.0-52.0); HEMOGLOBIN 14.1 g/dl (14.0-18.0); MEAN CELL VOLUME 98.6 fl (80.0-94.0); MEAN CORPUSCULAR HGB 32.6 pg (27.0-31.0); MEAN PLATELET VOLUME 9.8 fl (9.6-12.3); PLATELET COUNT AUTOMATED 182 10*3/uL (130-400); RED BLOOD COUNT 4.33 10*6/uL (4.50-5.90); RED CELL DISTRI WIDTH 13.5 % (0-14.5); WHITE BLOOD COUNT 10.3 10*3/uL (4.8-10.8)
[2018-09-30 07:12] LABS: ALBUMIN 3.1 gm/dl (3.1-4.5); BUN 19 mg/dl (7-24); CHLORIDE 110 mmol/L (98-107); CHOLESTEROL 116 mg/dL (<200); CREATININE 0.74 mg/dL (0.70-1.30); PHOSPHOROUS 2.3 mg/dL (2.5-4.9); POTASSIUM 4.6 mmol/L (3.5-5.1); SGOT/AST 7 IU/L (3-35); SGPT/ALT 23 U/L (12-78); SODIUM 141 mmol/L (136-145); TOTAL PROTEIN 6.1 gm/dL (6.4-8.2); TRIGLYCERIDES 90 mg/dl (<150); VLDL CHOLESTEROL 18 mg/dL (6-40)
[2018-09-30 07:24] LABS: ALKALINE PHOSPHATASE 90 U/L (45-117); DIGOXIN 0.93 ng/ml (0.8-2.0); HDL CHOLESTEROL 45 mg/dl (40-60); LDL CHOLESTEROL 53 mg/dL (9-159); THYROID STIM HORMONE (HS) 0.088 uIU/ml (0.358-4.75)
[2018-09-30 07:36] LABS: TOTAL CELLS COUNTED 100 #CELLS
[2018-09-30 07:37] LABS: BURR CELLS FEW; PLATELET SUFFICIENCY NORMAL (NORMAL)
[2018-09-30 08:00] VITALS: BP 112/56
[2018-09-30 08:01] LABS: VITAMIN D, 25-HYDROXY 22.1 ng/mL (30-100)
[2018-09-30 12:00] VITALS: BP 89/67
[2018-09-30 13:00] VITALS: BP 100/62
[2018-09-30 16:00] VITALS: BP 106/63
[2018-10-01 07:05] LABS: HEMOGLOBIN 13.5 g/dl (14.0-18.0); LYMPH # 0.3 10*3/uL (1.3-4.4); LYMPH % 2.6 % (27.0-41.0); MEAN CELL VOLUME 98.6 fl (80.0-94.0); MEAN CORPUSCULAR HGB 32.5 pg (27.0-31.0); MEAN CORPUSCULAR HGB CONC 32.9 g/dl (33.0-37.0); MEAN PLATELET VOLUME 9.8 fl (9.6-12.3); MONO # 0.4 10*3/uL (0.1-1.0); NEUT % 93.6 % (47.0-73.0); PLATELET COUNT AUTOMATED 176 10*3/uL (130-400); RED BLOOD COUNT 4.16 10*6/uL (4.50-5.90); WHITE BLOOD COUNT 11.7 10*3/uL (4.8-10.8)
[2018-10-01 07:40] LABS: BUN 24 mg/dl (7-24); CHLORIDE 108 mmol/L (98-107); CREATININE 0.73 mg/dL (0.70-1.30); POTASSIUM 4.8 mmol/L (3.5-5.1); SODIUM 141 mmol/L (136-145)
[2018-10-01 07:47] LABS: FREE T4 0.85 ng/dl (0.76-1.46); THYROID STIM HORMONE (HS) 0.089 uIU/ml (0.358-4.75)
[2018-10-01 08:00] VITALS: BP 88/62
[2018-10-01] MEDS ORDERED: PREDNISONE10 MG PO (11:10)
[2018-10-01] MEDS ORDERED: VITAMIN D32000 UNI1 PO (11:10)
[2018-10-01] MEDS ORDERED: DOXYCYCLINE100 M3 PO (11:10)
[2018-10-01 12:00] VITALS: BP 100/62
[2018-10-03 09:13] LABS: ADENOVIRUS Negative (Negative); INFLUENZA A Negative (Negative); INFLUENZA B Negative (Negative); METAPNEUMOVIRUS Negative (Negative); PARAINFLUENZA 1 Negative (Negative); PARAINFLUENZA 2 Negative (Negative); PARAINFLUENZA 3 Negative (Negative); RHINOVIRUS Positive (Negative); RSV A Negative (Negative); RSV B Negative (Negative)
[2018-11-03] MEDS ORDERED: COLACE 2-IN-11 EACH PO (10:34)
[2019-04-13] MEDS ORDERED: TRAMADOL HCL50 MG PO (10:26)
== END 2018-10-01 13:26 | disposition home health service (06) | DRG 871 ==
LOC: ED 12:44 → EDHOLD 14:38 → 5E 14:38 → EDHOLD 15:20 → 5E 15:51
PROVIDERS: Emergency Medicine; Student in an Organized Health Care Education/Training Program; ADMIT Internal Medicine
DX: A41.9 Sepsis, unspecified organism (principal); J18.9 Pneumonia, unspecified organism; J96.10 Chronic respiratory failure, unspecified whether with hypoxia or hypercapnia; E87.8 Other disorders of electrolyte and fluid balance, not elsewhere classified; R73.9 Hyperglycemia, unspecified; I25.10 Atherosclerotic heart disease of native coronary artery without angina pectoris; F32.9 Major depressive disorder, single episode, unspecified; N40.0 Benign prostatic hyperplasia without lower urinary tract symptoms; E78.5 Hyperlipidemia, unspecified; G47.33 Obstructive sleep apnea (adult) (pediatric); J43.9 Emphysema, unspecified; E53.8 Deficiency of other specified B group vitamins; I70.201 Unspecified atherosclerosis of native arteries of extremities, right leg; M71.22 Synovial cyst of popliteal space [Baker], left knee; E55.9 Vitamin D deficiency, unspecified; I48.2 Chronic atrial fibrillation; E66.01 Morbid (severe) obesity due to excess calories; I77.811 Abdominal aortic ectasia; T18.3XXA Foreign body in small intestine, initial encounter; F17.210 Nicotine dependence, cigarettes, uncomplicated; I95.9 Hypotension, unspecified; Z96.1 Presence of intraocular lens; Z99.81 Dependence on supplemental oxygen; Z71.6 Tobacco abuse counseling; Z79.01 Long term (current) use of anticoagulants; Z85.828 Personal history of other malignant neoplasm of skin; Z98.42 Cataract extraction status, left eye; Z98.41 Cataract extraction status, right eye; Z95.5 Presence of coronary angioplasty implant and graft; Z90.79 Acquired absence of other genital organ(s); Z80.1 Family history of malignant neoplasm of trachea, bronchus and lung; Z82.5 Family history of asthma and other chronic lower respiratory diseases; Z82.49 Family history of ischemic heart disease and other diseases of the circulatory system; Z88.8 Allergy status to other drugs, medicaments and biological substances; Z79.899 Other long term (current) drug therapy; X58.XXXA Exposure to other specified factors, initial encounter; Y93.89 Activity, other specified; Y92.89 Other specified places as the place of occurrence of the external cause; Y99.8 Other external cause status; Z87.01 Personal history of pneumonia (recurrent); Z68.27 Body mass index [BMI] 27.0-27.9, adult

== ENCOUNTER → 2018-11-01 | Outpatient (CLI) | payer OTHER ==
[~2018-11-01] MED LIST changes: +CARTIA XT120 MG PO; +COLACE 2-IN-11 EACH PO; +DIGOXIN250 MCG PO; +DOXYCYCLINE100 M3 PO; +Ipratropium Brom3 ML INH; +KLOR-CON 1010 ME1 PO; +LASIX40 MG PO; +LIPITOR40 MG PO; +PROTONIX40 MG PO; +SYMB160 INH; +VITAMIN D32000 UNI1 PO; +XARE20MG PO
[2018-11-01 16:20] LABS: BASO # 0.1 10*3/uL (0.0-0.1); BASO % 0.6 % (0.0-1.0); HEMATOCRIT 42.9 % (42.0-52.0); HEMOGLOBIN 13.6 g/dl (14.0-18.0); LYMPH # 0.7 10*3/uL (1.3-4.4); LYMPH % 8.6 % (27.0-41.0); MEAN CELL VOLUME 103.4 fl (80.0-94.0); MEAN CORPUSCULAR HGB 32.8 pg (27.0-31.0); MEAN CORPUSCULAR HGB CONC 31.7 g/dl (33.0-37.0); MEAN PLATELET VOLUME 9.3 fl (9.6-12.3); MONO # 0.4 10*3/uL (0.1-1.0); MONO % 4.3 % (3.0-9.0); NEUT # 6.8 10*3/uL (2.3-7.9); PLATELET COUNT AUTOMATED 186 10*3/uL (130-400); RED BLOOD COUNT 4.15 10*6/uL (4.50-5.90); RED CELL DISTRI WIDTH 14.7 % (0-14.5); WHITE BLOOD COUNT 8.1 10*3/uL (4.8-10.8)
[2018-11-01 16:21] LABS: BILIRUBIN NEGATIVE (NEGATIVE); BLOOD NEGATIVE (NEGATIVE); CLARITY CLEAR (CLEAR); COLOR YELLOW (YELLOW); GLUCOSE NEGATIVE (NEGATIVE); KETONE NEGATIVE (NEGATIVE); LEUKO ESTERASE NEGATIVE (NEGATIVE); NITRITE NEGATIVE (NEGATIVE); PH 6.5 (5.0-9.0); UROBILINOGEN 0.2 E.U./dl (0.2-1.0)
[2018-11-01 16:27] LABS: RBC 0-2 rbc/hpf (0-2); WBC 0-2 wbc/hpf (0-5)
[2018-11-01 16:28] LABS: BACTERIA TRACE
[2018-11-01 16:35] LABS: ALBUMIN 3.2 gm/dl (3.1-4.5); ALKALINE PHOSPHATASE 126 U/L (45-117); BUN 14 mg/dl (7-24); CHLORIDE 108 mmol/L (98-107); CREATININE 1.12 mg/dL (0.70-1.30); POTASSIUM 4.3 mmol/L (3.5-5.1); SGOT/AST 10 IU/L (3-35); SGPT/ALT 27 U/L (12-78); SODIUM 143 mmol/L (136-145); TOTAL PROTEIN 6.7 gm/dL (6.4-8.2)
[2018-11-04 08:11] LABS: PROSTATE SPECIFIC AG, SERUM 0.6 ng/mL (0.0-4.0)
[2018-11-04 09:13] LABS: PROSTATE SPECIFIC AG FREE 0.16 ng/mL
== END | disposition home or self-care (01) ==
LOC: LAB 15:53
PROVIDERS: Urology
DX: N39.0 Urinary tract infection, site not specified (principal); D40.0 Neoplasm of uncertain behavior of prostate

== ENCOUNTER → 2018-11-03 | Day surgery (SDC) | payer OTHER ==
[~2018-11-03] VITALS: Ht 162.5 cm; Wt 73.5 kg
[2018-11-03] VITALS (8 sets, daily range): BP systolic 83–108; BP diastolic 47–74
[2018-11-03 08:40] LABS: INTERNATIONAL NORM RATIO 0.9 (2.0-3.5)
== END | disposition home or self-care (01) ==
LOC: SDC 10-30 12:30
DX: D12.8 Benign neoplasm of rectum (principal); I25.10 Atherosclerotic heart disease of native coronary artery without angina pectoris; I10 Essential (primary) hypertension; K21.9 Gastro-esophageal reflux disease without esophagitis; G47.30 Sleep apnea, unspecified; F17.210 Nicotine dependence, cigarettes, uncomplicated; J43.9 Emphysema, unspecified; F32.9 Major depressive disorder, single episode, unspecified; Z98.61 Coronary angioplasty status; Z72.89 Other problems related to lifestyle; Z85.828 Personal history of other malignant neoplasm of skin; Z98.890 Other specified postprocedural states; Z88.8 Allergy status to other drugs, medicaments and biological substances; Z79.899 Other long term (current) drug therapy; Z95.818 Presence of other cardiac implants and grafts

== ENCOUNTER → 2019-04-13 | Day surgery (SDC) | payer OTHER ==
[2019-04-10 15:36] LABS: BASO # 0.1 10*3/uL (0.0-0.1); BASO % 0.7 % (0.0-1.0); EOS # 0.1 10*3/uL (0.0-0.4); EOS % 1.5 % (1.0-4.0); HEMATOCRIT 43.6 % (42.0-52.0); HEMOGLOBIN 14.4 g/dl (14.0-18.0); LYMPH # 1.7 10*3/uL (1.3-4.4); LYMPH % 21.5 % (27.0-41.0); MEAN CELL VOLUME 97.1 fl (80.0-94.0); MEAN CORPUSCULAR HGB 32.1 pg (27.0-31.0); MEAN PLATELET VOLUME 9.7 fl (9.6-12.3); MONO # 0.6 10*3/uL (0.1-1.0); MONO % 7.4 % (3.0-9.0); NEUT # 5.6 10*3/uL (2.3-7.9); NEUT % 68.5 % (47.0-73.0); PLATELET COUNT AUTOMATED 196 10*3/uL (130-400); RED BLOOD COUNT 4.49 10*6/uL (4.50-5.90); RED CELL DISTRI WIDTH 14.2 % (0-14.5); WHITE BLOOD COUNT 8.1 10*3/uL (4.8-10.8)
[2019-04-10 16:01] LABS: BUN 15 mg/dl (7-24); CHLORIDE 108 mmol/L (98-107); CREATININE 0.98 mg/dL (0.70-1.30); POTASSIUM 3.4 mmol/L (3.5-5.1); SODIUM 142 mmol/L (136-145)
[~2019-04-13] VITALS: Ht 162.5 cm; Wt 73.5 kg
[2019-04-13 06:40] VITALS: BP 98/56
[2019-04-13 09:33] VITALS: BP 80/56
[2019-04-13 09:48] VITALS: BP 96/67
[2019-04-13 10:03] VITALS: BP 100/67
[2019-04-13 10:18] VITALS: BP 96/67
== END | disposition home or self-care (01) ==
LOC: SDC 04-06 08:30
DX: C44.41 Basal cell carcinoma of skin of scalp and neck (principal); J43.9 Emphysema, unspecified; F32.9 Major depressive disorder, single episode, unspecified; I48.91 Unspecified atrial fibrillation; F41.9 Anxiety disorder, unspecified; I25.10 Atherosclerotic heart disease of native coronary artery without angina pectoris; K21.9 Gastro-esophageal reflux disease without esophagitis; G47.30 Sleep apnea, unspecified; E78.00 Pure hypercholesterolemia, unspecified; F17.210 Nicotine dependence, cigarettes, uncomplicated; I25.2 Old myocardial infarction; Z79.899 Other long term (current) drug therapy; Z95.5 Presence of coronary angioplasty implant and graft; Z79.84 Long term (current) use of oral hypoglycemic drugs; Z98.890 Other specified postprocedural states; Z88.8 Allergy status to other drugs, medicaments and biological substances; Z85.828 Personal history of other malignant neoplasm of skin; Z82.5 Family history of asthma and other chronic lower respiratory diseases; Z80.1 Family history of malignant neoplasm of trachea, bronchus and lung

== ENCOUNTER → 2019-10-09 | Outpatient (CLI) | payer OTHER ==
[~2019-10-09] MED LIST changes: +DALI500T PO; +SPIRIVA RESPIMAT4 GM INH; +VENTOLIN 02.5 MG/3 M INH
--- NOTE | 2019-10-09 10:45 | NUR ---
INFORMED CONSENT OBTAINED FOR LEXISCAN NUCLEAR STRESS TEST WITH DR. DEMPSEY RESTING EKG ATRIAL FIB WITH A RESTING HR OF 103 WITH BP OF 88/58. LUNGS WITH DIMINISHED SOUNDS WITH SPO2 OF 100% AFTER SCANNING WITH NASAL O2 AT 3L. NASAL O2 DECREASED TO 2L BY DR. DEMPSEY. PT COMPLETED A 1:00 LEXISCAN PROTOCOL RECEIVING LEXISCAN 0.4 MG IV OVER 10 SECONDS. ISOMETRIC HAND EXERCISED PERFORMED. CHRONIC ATRIAL FIB WITH IMMEDIATE RECOVERY HR OF 105 WITH BP OF 78/50. SPO2 OF 100% AT NASAL O2 2L. NO ST CHANGES AND PT MORE SHORT OF BREATH. AMINOPHYLLINE 100 MG IV ADMINISTERED ORDERED. SHORTNESS OF BREATH RELIEVED AFTER AMININOPHYLLINE ADMINISTERED. C/O FEELING "JITTERY" AFTER AMINOPHYLLINE ADMINISTERED THAT RELIEVED END OF RECOVERY. HAD A PEAK HR OF 140 WITH LAST RECOVERY HR OF 121 WITH BP OF 90/52 AND SPO2 OF 97% AT 2L. DR. DEMPSEY INSTRUCTED PATIENT TO HOLD DAILY LASIX UNTIL Saturday10/12/19. WRITTEN INSTRUCTION GIVEN TO PATIENT AND PATIENT VERBALIZED UNDERSTANDING. AWAITING SCANNING IN STABLE CONDITION.
== END | disposition home or self-care (01) ==
LOC: CARD 00:34
DX: I48.21 Permanent atrial fibrillation (principal); R06.02 Shortness of breath; R07.2 Precordial pain

== ENCOUNTER → 2019-11-06 | Day surgery (SDC) | payer OTHER ==
[~2019-11-06] VITALS: Ht 162.5 cm; Wt 68.5 kg
[~2019-11-06] MED LIST changes: +BUTALB-ASPIRIN1 EACH PO; +NORCO 5-325 TA1 EACH PO
[2019-11-06 09:00] VITALS: BP 100/52
[2019-11-06 11:10] VITALS: BP 118/50
[2019-11-06 11:26] VITALS: BP 108/73
[2019-11-06 11:33] VITALS: BP 103/75
== END | disposition home or self-care (01) ==
LOC: SDC 10-27 13:15
DX: C44.41 Basal cell carcinoma of skin of scalp and neck (principal); F32.9 Major depressive disorder, single episode, unspecified; J43.9 Emphysema, unspecified; I25.10 Atherosclerotic heart disease of native coronary artery without angina pectoris; K21.9 Gastro-esophageal reflux disease without esophagitis; I10 Essential (primary) hypertension; F17.210 Nicotine dependence, cigarettes, uncomplicated; Z98.890 Other specified postprocedural states; Z79.899 Other long term (current) drug therapy; Z85.9 Personal history of malignant neoplasm, unspecified; Z88.8 Allergy status to other drugs, medicaments and biological substances; Z82.5 Family history of asthma and other chronic lower respiratory diseases; Z80.1 Family history of malignant neoplasm of trachea, bronchus and lung

== ENCOUNTER → 2020-06-03 | Outpatient (CLI) | payer OTHER ==
[2020-06-03 11:20] LABS: HEMATOCRIT 42.9 % (42.0-52.0); MEAN CELL VOLUME 96.8 fl (80.0-94.0); MEAN CORPUSCULAR HGB 30.5 pg (27.0-31.0); MEAN CORPUSCULAR HGB CONC 31.5 g/dl (33.0-37.0); MEAN PLATELET VOLUME 9.4 fl (9.6-12.3); RED BLOOD COUNT 4.43 10*6/uL (4.50-5.90); RED CELL DISTRI WIDTH 14.5 % (0-14.5); WHITE BLOOD COUNT 7.9 10*3/uL (4.8-10.8)
[2020-06-03 11:56] LABS: ALBUMIN 3.6 gm/dl (3.1-4.5); ALKALINE PHOSPHATASE 202 U/L (45-117); BUN 12 mg/dl (7-24); CHLORIDE 108 mmol/L (98-107); CHOLESTEROL 111 mg/dL (<200); CREATININE 0.82 mg/dL (0.70-1.30); HDL CHOLESTEROL 43 mg/dl (40-60); LDL CHOLESTEROL 56 mg/dL (9-159); POTASSIUM 3.3 mmol/L (3.5-5.1); SGOT/AST 8 IU/L (3-35); SGPT/ALT 17 U/L (12-78); SODIUM 142 mmol/L (136-145); TOTAL PROTEIN 7.3 gm/dL (6.4-8.2); TRIGLYCERIDES 60 mg/dl (<150); VLDL CHOLESTEROL 12 mg/dL (6-40)
== END | disposition home or self-care (01) ==
LOC: LAB 10:32
PROVIDERS: ATTEND Physician Assistant
DX: K21.9 Gastro-esophageal reflux disease without esophagitis (principal); J43.2 Centrilobular emphysema; F51.01 Primary insomnia; E78.00 Pure hypercholesterolemia, unspecified; I48.0 Paroxysmal atrial fibrillation; F17.219 Nicotine dependence, cigarettes, with unspecified nicotine-induced disorders

== ENCOUNTER 2020-06-26 11:52 | Emergency (ER) | payer OTHER ==
[~2020-06-26] VITALS: Ht 162.5 cm; Wt 70.3 kg
[2020-06-26 12:02] VITALS: BP 117/77
[2020-06-26 12:35] LABS: BASO % 0.8 % (0.0-1.0); EOS # 0.1 10*3/uL (0.0-0.4); EOS % 1.8 % (1.0-4.0); HEMATOCRIT 43.4 % (42.0-52.0); LYMPH # 1.3 10*3/uL (1.3-4.4); LYMPH % 26.1 % (27.0-41.0); MEAN CORPUSCULAR HGB 29.9 pg (27.0-31.0); MEAN CORPUSCULAR HGB CONC 31.1 g/dl (33.0-37.0); MEAN PLATELET VOLUME 9.4 fl (9.6-12.3); MONO # 0.4 10*3/uL (0.1-1.0); MONO % 7.2 % (3.0-9.0); NEUT # 3.2 10*3/uL (2.3-7.9); NEUT % 63.7 % (47.0-73.0); PLATELET COUNT AUTOMATED 229 10*3/uL (130-400); RED BLOOD COUNT 4.52 10*6/uL (4.50-5.90); RED CELL DISTRI WIDTH 14.1 % (0-14.5)
[2020-06-26 12:47] LABS: ACT PARTIAL THROMBO TIME 39.6 SECONDS (20.0-32.1); INTERNATIONAL NORM RATIO 1.3 (2.0-3.5)
[2020-06-26 12:53] LABS: ALBUMIN 3.4 gm/dl (3.1-4.5); ALKALINE PHOSPHATASE 167 U/L (45-117); BUN 9 mg/dl (7-24); CHLORIDE 110 mmol/L (98-107); CREATININE 0.79 mg/dL (0.70-1.30); POTASSIUM 3.4 mmol/L (3.5-5.1); SGOT/AST 9 IU/L (3-35); SGPT/ALT 21 U/L (12-78); SODIUM 142 mmol/L (136-145); TOTAL PROTEIN 7.3 gm/dL (6.4-8.2)
[2020-06-26 12:56] LABS: TROPONIN I < 0.015 ng/ml (<0.045)
[2020-06-26 13:33] LABS: BILIRUBIN Negative (Negative); BLOOD Negative (Negative); CLARITY Clear (Clear); COLOR Yellow (Yellow); GLUCOSE Negative (Negative); KETONE Negative (Negative); LEUKO ESTERASE Negative (Negative); NITRITE Negative (Negative); PH 6.5 (4.5-8.0); SPECIFIC GRAVITY <= 1.005 (1.001-1.030); UROBILINOGEN 0.2 E.U./dl (0.0-1.0)
[2020-06-26 13:45] LABS: EPITHELIAL CELLS 0-2; WBC 0-2 wbc/hpf (0-5)
[2020-06-26] MEDS ORDERED: Ipratropium Brom3 ML INH (14:23)
[2020-06-26] MEDS ORDERED: PREDNISONE50 MG PO (14:23)
[2020-06-26] MEDS ORDERED: AVPAK AZITHROM250 MG PO (14:23)
== END 2020-06-26 15:42 | disposition left against medical advice (07) ==
LOC: ED 11:52
PROVIDERS: Nurse Practitioner Family
DX: R07.9 Chest pain, unspecified (principal); J44.1 Chronic obstructive pulmonary disease with (acute) exacerbation; R06.00 Dyspnea, unspecified; Z88.8 Allergy status to other drugs, medicaments and biological substances; Z79.899 Other long term (current) drug therapy; Z79.2 Long term (current) use of antibiotics

== ENCOUNTER → 2020-08-10 | Outpatient (CLI) | payer OTHER ==
[~2020-08-10] MED LIST changes: +AVPAK AZITHROM250 MG PO; +PREDNISONE50 MG PO
== END | disposition home or self-care (01) ==
LOC: RAD 10:40
PROVIDERS: ATTEND Internal Medicine Critical Care Medicine
DX: J44.9 Chronic obstructive pulmonary disease, unspecified (principal)

== ENCOUNTER → 2020-09-06 | Outpatient (CLI) | payer OTHER | END | disposition home or self-care (01) | LOC: COVID19 09:39 | PROVIDERS: ATTEND Physician Assistant | DX: Z20.828 Contact with and (suspected) exposure to other viral communicable diseases (principal) ==

== ENCOUNTER 2020-09-19 17:43 | Emergency (ER) | payer OTHER | END 2020-09-19 23:01 | disposition left against medical advice (07) | LOC: ED 17:43 | DX: R07.89 Other chest pain (principal); M54.2 Cervicalgia; R07.0 Pain in throat; R10.9 Unspecified abdominal pain; Z53.21 Procedure and treatment not carried out due to patient leaving prior to being seen by health care provider ==

== ENCOUNTER → 2020-09-30 | Outpatient (CLI) | payer OTHER | END | disposition home or self-care (01) | LOC: US 09:26 | PROVIDERS: ATTEND Nurse Practitioner Primary Care | DX: I71.4 Abdominal aortic aneurysm, without rupture (principal) ==

== ENCOUNTER 2020-12-01 11:24 | Emergency (ER) | payer OTHER ==
[~2020-12-01 11:24] MED LIST changes: +TRAZODONE50 MG PO
[2020-12-01 12:03] LABS: HEMATOCRIT 41.8 % (42.0-52.0); MEAN CELL VOLUME 96.8 fl (80.0-94.0); MEAN CORPUSCULAR HGB 30.1 pg (27.0-31.0); MEAN CORPUSCULAR HGB CONC 31.1 g/dl (33.0-37.0); MEAN PLATELET VOLUME 9.2 fl (9.6-12.3); PLATELET COUNT AUTOMATED 175 10*3/uL (130-400); RED BLOOD COUNT 4.32 10*6/uL (4.50-5.90); RED CELL DISTRI WIDTH 15.6 % (0-14.5); WHITE BLOOD COUNT 11.2 10*3/uL (4.8-10.8)
[2020-12-01 12:18] LABS: ACT PARTIAL THROMBO TIME 33.1 SECONDS (20.0-32.1); INTERNATIONAL NORM RATIO 1.2 (2.0-3.5); TOTAL CELLS COUNTED 100 #CELLS
[2020-12-01 12:19] LABS: BURR CELLS FEW; OVALOCYTES FEW; PLATELET SUFFICIENCY NORMAL (NORMAL)
[2020-12-01 12:21] LABS: ALBUMIN 3.3 gm/dl (3.1-4.5); ALKALINE PHOSPHATASE 127 U/L (45-117); BUN 13 mg/dl (7-24); CHLORIDE 109 mmol/L (98-107); CREATININE 0.89 mg/dL (0.70-1.30); LIPASE 114 U/L (73-393); POTASSIUM 3.6 mmol/L (3.5-5.1); SGOT/AST 12 IU/L (3-35); SGPT/ALT 26 U/L (12-78); SODIUM 143 mmol/L (136-145); TOTAL PROTEIN 6.7 gm/dL (6.4-8.2)
[2020-12-01 12:22] LABS: TROPONIN I < 0.015 ng/ml (<0.045)
[2020-12-01 14:03] LABS: BILIRUBIN Negative (Negative); BLOOD Negative (Negative); CLARITY Clear (Clear); COLOR Yellow (Yellow); GLUCOSE Negative (Negative); KETONE Negative (Negative); LEUKO ESTERASE Negative (Negative); NITRITE Negative (Negative); SPECIFIC GRAVITY <= 1.005 (1.001-1.030)
[2020-12-01 14:09] LABS: BACTERIA 2+; EPITHELIAL CELLS 0-2; WBC 0-2 wbc/hpf (0-5)
[2020-12-01 14:10] VITALS: BP 93/51
[2021-01-17] MEDS ORDERED: DIGITEK250 MCG PO (07:30)
[2021-01-19] MEDS ORDERED: PROTONIX40 MG PO (09:32)
[2021-01-19] MEDS ORDERED: CARAFATE1 G1 PO (09:32)
== END 2020-12-01 14:55 | disposition home or self-care (01) ==
LOC: ED 11:24
PROVIDERS: Emergency Medicine
DX: I71.4 Abdominal aortic aneurysm, without rupture (principal); K42.9 Umbilical hernia without obstruction or gangrene; R10.30 Lower abdominal pain, unspecified; I48.91 Unspecified atrial fibrillation; I25.10 Atherosclerotic heart disease of native coronary artery without angina pectoris; J44.9 Chronic obstructive pulmonary disease, unspecified; F32.9 Major depressive disorder, single episode, unspecified; E78.5 Hyperlipidemia, unspecified; I10 Essential (primary) hypertension; Z88.8 Allergy status to other drugs, medicaments and biological substances; Z79.899 Other long term (current) drug therapy; Z98.890 Other specified postprocedural states; Z95.818 Presence of other cardiac implants and grafts

== ENCOUNTER → 2020-12-27 | Outpatient (CLI) | payer OTHER ==
[~2020-12-27] MED LIST changes: +CARAFATE1 G1 PO
[2020-12-27 11:03] LABS: CREATININE 0.83 mg/dL (0.70-1.30)
== END | disposition home or self-care (01) ==
LOC: LAB 09:56
PROVIDERS: ATTEND Surgery
DX: Z01.812 Encounter for preprocedural laboratory examination (principal)

== ENCOUNTER → 2021-01-03 | Outpatient (CLI) | payer OTHER | END | disposition home or self-care (01) | LOC: CT 09:24 | PROVIDERS: ATTEND Surgery | DX: I71.4 Abdominal aortic aneurysm, without rupture (principal); N20.0 Calculus of kidney; K59.00 Constipation, unspecified; R13.10 Dysphagia, unspecified ==

== ENCOUNTER → 2021-01-16 | Outpatient (CLI) | payer OTHER | END | disposition home or self-care (01) | LOC: COVID19 11:09 | PROVIDERS: ATTEND Surgery | DX: Z01.818 Encounter for other preprocedural examination (principal); Z20.822 Contact with and (suspected) exposure to COVID-19 ==

== ENCOUNTER → 2021-01-19 | Day surgery (SDC) | payer OTHER ==
[~2021-01-19] VITALS: Ht 162.5 cm; Wt 68.0 kg
[2021-01-19 08:40] VITALS: BP 98/64
[2021-01-19 09:30] VITALS: BP 94/55
[2021-01-19 09:45] VITALS: BP 101/64
[2021-01-19 10:00] VITALS: BP 103/64
== END | disposition home or self-care (01) ==
LOC: SDC 01-16 09:30
PROVIDERS: ATTEND Surgery
DX: K59.00 Constipation, unspecified (principal); K29.50 Unspecified chronic gastritis without bleeding; D12.0 Benign neoplasm of cecum; D12.4 Benign neoplasm of descending colon; J44.9 Chronic obstructive pulmonary disease, unspecified; I25.10 Atherosclerotic heart disease of native coronary artery without angina pectoris; K21.9 Gastro-esophageal reflux disease without esophagitis; F32.9 Major depressive disorder, single episode, unspecified; E78.00 Pure hypercholesterolemia, unspecified; I48.91 Unspecified atrial fibrillation; F17.210 Nicotine dependence, cigarettes, uncomplicated

== ENCOUNTER → 2021-06-15 | Outpatient (CLI) | payer OTHER ==
[2021-06-15 10:49] LABS: BASO # 0.1 10*3/uL (0.0-0.1); EOS # 0.1 10*3/uL (0.0-0.4); EOS % 1.9 % (1.0-4.0); HEMATOCRIT 42.6 % (42.0-52.0); LYMPH # 1.7 10*3/uL (1.3-4.4); LYMPH % 26.1 % (27.0-41.0); MEAN CELL VOLUME 99.1 fl (80.0-94.0); MEAN CORPUSCULAR HGB 29.5 pg (27.0-31.0); MEAN CORPUSCULAR HGB CONC 29.8 g/dl (33.0-37.0); MEAN PLATELET VOLUME 9.3 fl (9.6-12.3); MONO # 0.6 10*3/uL (0.1-1.0); MONO % 8.7 % (3.0-9.0); NEUT # 3.9 10*3/uL (2.3-7.9); NEUT % 62.1 % (47.0-73.0); PLATELET COUNT AUTOMATED 191 10*3/uL (130-400); RED CELL DISTRI WIDTH 14.9 % (0-14.5); WHITE BLOOD COUNT 6.3 10*3/uL (4.8-10.8)
[2021-06-15 10:50] LABS: BILIRUBIN Negative (Negative); BLOOD Negative (Negative); CLARITY Clear (Clear); COLOR Yellow (Yellow); GLUCOSE Negative (Negative); KETONE Negative (Negative); LEUKO ESTERASE Negative (Negative); NITRITE Negative (Negative); PH 7.5 (4.5-8.0); SPECIFIC GRAVITY <= 1.005 (1.001-1.030); UROBILINOGEN 0.2 E.U./dl (0.0-1.0)
[2021-06-15 11:22] LABS: ALBUMIN 3.1 gm/dl (3.1-4.5); ALKALINE PHOSPHATASE 160 U/L (45-117); BUN 4 mg/dl (7-24); CHLORIDE 110 mmol/L (98-107); LDH 136 U/L (87-241); POTASSIUM 4.2 mmol/L (3.5-5.1); SGOT/AST 7 IU/L (3-35); SGPT/ALT 18 U/L (12-78); SODIUM 144 mmol/L (136-145); TOTAL PROTEIN 6.8 gm/dL (6.4-8.2)
[2021-06-15 11:25] LABS: BETA-HCG, TUMOR MARKER < 1.0 mIU/mL (<1)
[2021-06-15 12:23] LABS: EPITHELIAL CELLS 0-2
== END | disposition home or self-care (01) ==
LOC: US 00:18 → LAB 00:18 → US 10:00 → CT 11:00
PROVIDERS: ATTEND Urology
DX: K80.20 Calculus of gallbladder without cholecystitis without obstruction (principal); I70.0 Atherosclerosis of aorta; N50.3 Cyst of epididymis; N44.2 Benign cyst of testis; N43.3 Hydrocele, unspecified; Z12.5 Encounter for screening for malignant neoplasm of prostate

== ENCOUNTER → 2021-07-18 | Outpatient (CLI) | payer OTHER | END | disposition home or self-care (01) | LOC: COVID19 15:44 | PROVIDERS: ATTEND Internal Medicine | DX: Z11.52 Encounter for screening for COVID-19 (principal) ==

== ENCOUNTER → 2021-10-03 | Outpatient (CLI) | payer MEDICARE, OTHER ==
[2021-10-03 11:47] LABS: CREATININE 0.82 mg/dL (0.70-1.30)
== END | disposition home or self-care (01) ==
LOC: LAB 11:20
PROVIDERS: ATTEND Surgery
DX: R22.1 Localized swelling, mass and lump, neck (principal)

== ENCOUNTER → 2021-10-05 | Outpatient (CLI) | payer MEDICARE, OTHER | END | disposition home or self-care (01) | LOC: COVID19 16:40 | PROVIDERS: ATTEND Internal Medicine | DX: Z11.52 Encounter for screening for COVID-19 (principal) ==

== ENCOUNTER → 2021-10-06 | Outpatient (CLI) | payer OTHER | END | disposition home or self-care (01) | LOC: CT 10:00 | PROVIDERS: ATTEND Surgery | DX: R22.1 Localized swelling, mass and lump, neck (principal); M79.89 Other specified soft tissue disorders; J43.9 Emphysema, unspecified ==

== ENCOUNTER → 2022-02-14 | Outpatient (CLI) | payer OTHER | END | disposition home or self-care (01) | LOC: CT 09:54 | PROVIDERS: ATTEND Specialist | DX: J38.3 Other diseases of vocal cords (principal); D11.0 Benign neoplasm of parotid gland ==

== ENCOUNTER → 2022-02-20 | Outpatient (CLI) | payer OTHER | END | disposition home or self-care (01) | LOC: RAD 10:00 | PROVIDERS: ATTEND Specialist | DX: K21.9 Gastro-esophageal reflux disease without esophagitis (principal); J44.9 Chronic obstructive pulmonary disease, unspecified ==

== ENCOUNTER → 2022-03-06 | Outpatient (CLI) | payer OTHER ==
[2022-03-06 15:46] LABS: DIGOXIN 1.48 ng/ml (0.8-2.0)
== END ==
LOC: LAB 15:01
PROVIDERS: ATTEND Internal Medicine Cardiovascular Disease
DX: E78.49 Other hyperlipidemia (principal); I48.21 Permanent atrial fibrillation

== ENCOUNTER → 2022-03-19 | Outpatient (CLI) | payer OTHER ==
[~2022-03-19] VITALS: Ht 162.5 cm; Wt 59.0 kg
[2022-03-19 14:18] VITALS: BP 93/59
[2022-03-19 15:19] LABS: BASO # 0.1 10*3/uL (0.0-0.1); EOS # 0.1 10*3/uL (0.0-0.4); EOS % 1.3 % (1.0-4.0); HEMATOCRIT 41.1 % (42.0-52.0); LYMPH # 1.5 10*3/uL (1.3-4.4); LYMPH % 23.3 % (27.0-41.0); MEAN CELL VOLUME 98.3 fl (80.0-94.0); MEAN CORPUSCULAR HGB 30.6 pg (27.0-31.0); MEAN CORPUSCULAR HGB CONC 31.1 g/dl (33.0-37.0); MONO # 0.5 10*3/uL (0.1-1.0); MONO % 8.3 % (3.0-9.0); NEUT # 4.1 10*3/uL (2.3-7.9); NEUT % 65.9 % (47.0-73.0); PLATELET COUNT AUTOMATED 213 10*3/uL (130-400); RED BLOOD COUNT 4.18 10*6/uL (4.50-5.90); RED CELL DISTRI WIDTH 13.8 % (0-14.5); WHITE BLOOD COUNT 6.3 10*3/uL (4.8-10.8)
[2022-03-19 15:31] LABS: BUN 7 mg/dl (7-24); CHLORIDE 109 mmol/L (98-107); CREATININE 0.78 mg/dL (0.70-1.30); POTASSIUM 3.9 mmol/L (3.5-5.1); SODIUM 144 mmol/L (136-145)
== END | disposition home or self-care (01) ==
LOC: LAB 08:00 → SDC 14:00 → EDSTATUS 03-20 14:00 → SDC 03-20 14:00
PROVIDERS: ATTEND Specialist
DX: J38.7 Other diseases of larynx (principal); I48.91 Unspecified atrial fibrillation; J44.9 Chronic obstructive pulmonary disease, unspecified; I25.10 Atherosclerotic heart disease of native coronary artery without angina pectoris; K21.9 Gastro-esophageal reflux disease without esophagitis; I10 Essential (primary) hypertension; E78.00 Pure hypercholesterolemia, unspecified; F17.210 Nicotine dependence, cigarettes, uncomplicated; F32.9 Major depressive disorder, single episode, unspecified; Z95.5 Presence of coronary angioplasty implant and graft; Z85.828 Personal history of other malignant neoplasm of skin; Z53.8 Procedure and treatment not carried out for other reasons

== ENCOUNTER → 2022-03-27 | Day surgery (SDC) | payer OTHER ==
[2022-03-27 09:16] VITALS: BP 104/70
[2022-03-27 10:15] VITALS: BP 100/53
[2022-03-27 10:30] VITALS: BP 111/57
[2022-03-27 10:45] VITALS: BP 105/60
[2022-03-27 11:00] VITALS: BP 86/59
[2022-03-27 11:15] VITALS: BP 112/55
== END | disposition home or self-care (01) ==
LOC: EDSTATUS 03-23 11:00 → SDC 03-23 11:00
PROVIDERS: ATTEND Specialist
DX: C32.0 Malignant neoplasm of glottis (principal); J38.7 Other diseases of larynx; J44.9 Chronic obstructive pulmonary disease, unspecified; I25.10 Atherosclerotic heart disease of native coronary artery without angina pectoris; R63.4 Abnormal weight loss; I48.0 Paroxysmal atrial fibrillation; K21.9 Gastro-esophageal reflux disease without esophagitis; I11.0 Hypertensive heart disease with heart failure; I50.9 Heart failure, unspecified; F17.210 Nicotine dependence, cigarettes, uncomplicated; F32.9 Major depressive disorder, single episode, unspecified; Z95.5 Presence of coronary angioplasty implant and graft; I25.2 Old myocardial infarction; Z98.42 Cataract extraction status, left eye; Z98.41 Cataract extraction status, right eye

== ENCOUNTER → 2022-10-02 | Outpatient (CLI) | payer OTHER ==
[~2022-10-02] MED LIST changes: +ASPIRIN CHEWABL81 MG PO; +BUDESONIDE-FO10.2 G1 INH; +GOOD SENSE ACID20 MG PO; +IMDUR SA30 MG PO; +LEVOFLOXACIN750 M2 PO; +OMNICEF300 MG PO; +PROSCAR5 M1 PO; +VITAMIN D350 MC2 PO; +ZITHROMAX250 MG PO
[2022-10-02 16:32] LABS: ABG BASE EXCESS 2.5 mmol/L (-2.0-2.0); ARTERIAL BLOOD GAS PH 7.412 (7.35-7.45); ARTERIAL BLOOD GAS PO2 69.8 (80-90)
== END | disposition home or self-care (01) ==
LOC: LAB 15:50
PROVIDERS: ATTEND Internal Medicine Critical Care Medicine
DX: J96.00 Acute respiratory failure, unspecified whether with hypoxia or hypercapnia (principal); J45.40 Moderate persistent asthma, uncomplicated; J43.2 Centrilobular emphysema; Z80.1 Family history of malignant neoplasm of trachea, bronchus and lung; Z87.891 Personal history of nicotine dependence

== ENCOUNTER → 2023-09-20 | Outpatient (CLI) | payer OTHER ==
[2023-09-20 12:02] LABS: BASO # 0.1 10*3/uL (0.0-0.1); BASO % 0.8 % (0.0-1.0); EOS # 0.2 10*3/uL (0.0-0.4); EOS % 2.8 % (1.0-4.0); HEMATOCRIT 44.6 % (42.0-52.0); LYMPH # 0.9 10*3/uL (1.3-4.4); MEAN CELL VOLUME 98.5 fl (80.0-94.0); MEAN CORPUSCULAR HGB 30.5 pg (27.0-31.0); MEAN CORPUSCULAR HGB CONC 30.9 g/dl (33.0-37.0); MEAN PLATELET VOLUME 10.3 fl (9.6-12.3); MONO # 0.7 10*3/uL (0.1-1.0); NEUT # 4.2 10*3/uL (2.3-7.9); NEUT % 69.2 % (47.0-73.0); PLATELET COUNT AUTOMATED 151 10*3/uL (130-400); RED BLOOD COUNT 4.53 10*6/uL (4.50-5.90); RED CELL DISTRI WIDTH 15.3 % (0-14.5); WHITE BLOOD COUNT 6.1 10*3/uL (4.8-10.8)
[2023-09-20 12:28] LABS: ALKALINE PHOSPHATASE 157 U/L (46-116); BUN 16 mg/dl (9-23); CHLORIDE 103 mmol/L (98-107); POTASSIUM 4.2 mmol/L (3.4-5.1); SGPT/ALT 7 U/L (5-49); TOTAL PROTEIN 7.6 gm/dL (6.0-8.0)
== END | disposition home or self-care (01) ==
LOC: LAB 11:40
PROVIDERS: ATTEND Urology
DX: Z12.5 Encounter for screening for malignant neoplasm of prostate (principal); R53.83 Other fatigue

== ENCOUNTER → 2023-10-01 | Outpatient (CLI) | payer OTHER | END | disposition home or self-care (01) | LOC: US 01:36 | PROVIDERS: ATTEND Urology | DX: N20.0 Calculus of kidney (principal) ==

== ENCOUNTER → 2023-10-22 | Outpatient (CLI) | payer OTHER | END | disposition home or self-care (01) | LOC: US 13:05 | PROVIDERS: ATTEND Urology | DX: N44.2 Benign cyst of testis (principal); N43.3 Hydrocele, unspecified; N50.819 Testicular pain, unspecified; Z90.79 Acquired absence of other genital organ(s) ==

== ENCOUNTER → 2023-12-10 | Outpatient (CLI) | payer OTHER ==
[2023-12-10 13:04] LABS: LDH 122 U/L (120-246)
[2023-12-10 13:05] LABS: BETA-HCG, TUMOR MARKER < 3.0 mIU/mL (0-3)
== END | disposition home or self-care (01) ==
LOC: LAB 12:06
PROVIDERS: ATTEND Urology
DX: N50.89 Other specified disorders of the male genital organs (principal)

== ENCOUNTER → 2024-05-18 | Outpatient (CLI) | payer OTHER | END | disposition home or self-care (01) | LOC: US 12:24 | PROVIDERS: ATTEND Urology | DX: N50.89 Other specified disorders of the male genital organs (principal); N50.3 Cyst of epididymis; N50.819 Testicular pain, unspecified; N43.3 Hydrocele, unspecified; R59.0 Localized enlarged lymph nodes ==

== ENCOUNTER → 2024-07-01 | Outpatient (CLI) | payer MEDICARE, OTHER ==
[~2024-07-01] MED LIST changes: +CEPHALEXIN500 M1 PO; +DOXYCYCLINE HY100 M3 PO; +LEADER NATUR1000 MCG PO; +PANTOPRAZOLE SO40 MG PO; +VIBRA-TAB100 MG PO
== END | disposition home or self-care (01) ==
LOC: WOUNDCARE 06-30 19:21
PROVIDERS: ATTEND Nurse Practitioner Family
DX: N49.2 Inflammatory disorders of scrotum (principal); L02.215 Cutaneous abscess of perineum; N40.0 Benign prostatic hyperplasia without lower urinary tract symptoms; J44.9 Chronic obstructive pulmonary disease, unspecified; I48.91 Unspecified atrial fibrillation; I25.10 Atherosclerotic heart disease of native coronary artery without angina pectoris; E78.5 Hyperlipidemia, unspecified; E55.9 Vitamin D deficiency, unspecified; F32.A Depression, unspecified; F17.210 Nicotine dependence, cigarettes, uncomplicated; F12.90 Cannabis use, unspecified, uncomplicated; Z99.81 Dependence on supplemental oxygen; Z95.818 Presence of other cardiac implants and grafts; Z85.828 Personal history of other malignant neoplasm of skin; Z98.49 Cataract extraction status, unspecified eye; Z79.82 Long term (current) use of aspirin; Z79.899 Other long term (current) drug therapy

== ENCOUNTER → 2024-07-06 | Outpatient (CLI) | payer MEDICARE, OTHER | END | disposition home or self-care (01) | LOC: WOUNDCARE 13:16 | PROVIDERS: ATTEND Nurse Practitioner Family | DX: N49.2 Inflammatory disorders of scrotum (principal); L02.215 Cutaneous abscess of perineum; N40.0 Benign prostatic hyperplasia without lower urinary tract symptoms; J44.9 Chronic obstructive pulmonary disease, unspecified; I48.91 Unspecified atrial fibrillation; I25.10 Atherosclerotic heart disease of native coronary artery without angina pectoris; E78.5 Hyperlipidemia, unspecified; E55.9 Vitamin D deficiency, unspecified; F32.A Depression, unspecified; F12.90 Cannabis use, unspecified, uncomplicated; F17.210 Nicotine dependence, cigarettes, uncomplicated; Z99.81 Dependence on supplemental oxygen; Z95.818 Presence of other cardiac implants and grafts; Z85.828 Personal history of other malignant neoplasm of skin; Z98.49 Cataract extraction status, unspecified eye; Z79.82 Long term (current) use of aspirin; Z79.899 Other long term (current) drug therapy ==

== ENCOUNTER → 2024-07-29 | Outpatient (CLI) | payer MEDICARE, OTHER ==
[2024-07-29 15:01] LABS: BILIRUBIN Negative (Negative); BLOOD Negative (Negative); CLARITY Turbid (Clear); COLOR Yellow (Yellow); GLUCOSE Negative (Negative); KETONE Negative (Negative); LEUKO ESTERASE Negative (Negative); NITRITE Negative (Negative)
[2024-07-29 15:28] LABS: EPITHELIAL CELLS 0-2; WBC 0-2 wbc/hpf (0-5)
== END | disposition home or self-care (01) ==
LOC: LAB 14:25
PROVIDERS: ATTEND Urology
DX: Z12.5 Encounter for screening for malignant neoplasm of prostate (principal); R53.83 Other fatigue; D40.0 Neoplasm of uncertain behavior of prostate; N39.0 Urinary tract infection, site not specified

== ENCOUNTER → 2025-04-16 | Outpatient (CLI) | payer OTHER ==
[~2025-04-16] MED LIST changes: +AMOX-CLAV 875-1 EACH PO; +FENTANYL1 EAC3 T; +LATANOPROST2.5 ML OP; +NICODERM CQ1 EAC2 T; +OXYCODONE-ACET1 EAC3 PO
[2025-04-16 14:10] LABS: BUN 11 mg/dl (9-23)
== END ==
LOC: LAB 13:28
PROVIDERS: ATTEND Nurse Practitioner Primary Care
DX: I35.0 Nonrheumatic aortic (valve) stenosis (principal)

== ENCOUNTER → 2025-05-26 | Outpatient (CLI) | payer OTHER | LOC: ORTHO 02:09 | PROVIDERS: ATTEND Orthopaedic Surgery | DX: M25.511 Pain in right shoulder (principal) ==

== ENCOUNTER 2025-08-04 23:10 | Emergency (ER) | payer OTHER ==
[~2025-08-04] VITALS: Ht 167.6 cm; Wt 83.7 kg
[2025-08-04] MEDS ORDERED: Naloxone Hydrochloride 2 MG/2 ML SYR IV ONE ×2 (23:15)
[2025-08-05] MEDS ORDERED: AZITHROMYCIN 250 ML IV ONE (00:40)
[2025-08-05] MEDS ORDERED: LORazepam 2 MG/ML VIAL IV ONE (01:25)
[2025-08-05 08:36] VITALS: BP 50/22
== END 2025-08-05 09:02 ==
LOC: ED 23:10
DX: I46.9 Cardiac arrest, cause unspecified (principal); J96.20 Acute and chronic respiratory failure, unspecified whether with hypoxia or hypercapnia; J44.9 Chronic obstructive pulmonary disease, unspecified; I25.10 Atherosclerotic heart disease of native coronary artery without angina pectoris; K21.9 Gastro-esophageal reflux disease without esophagitis; I10 Essential (primary) hypertension; F32.A Depression, unspecified; G47.30 Sleep apnea, unspecified; I48.91 Unspecified atrial fibrillation; F12.90 Cannabis use, unspecified, uncomplicated; F17.210 Nicotine dependence, cigarettes, uncomplicated; Z98.890 Other specified postprocedural states; Z88.8 Allergy status to other drugs, medicaments and biological substances